=== PATIENT | male | born 1965 | race American Indian/Alaskan Native ===

== ENCOUNTER 2016-12-05 09:58 | Inpatient (IN) | payer OTHER ==
[2016-12-05 10:21] VITALS: BMI 38.6
[2016-12-05] MEDS ORDERED: Sodium Chloride 0.9% 1,000 ML IV STA (10:27)
[2016-12-05] MEDS ORDERED: Iohexol 240 (50 ml) PO ONE (10:27)
--- NOTE | 2016-12-05 10:29 | ED PDOC ---
HPI: Abdomen Time Seen by Provider: 12/05/16 10:15 Chief Complaint (Nursing): Abdominal Pain Chief Complaint (Provider): Abd pain History Per: Patient History/Exam Limitations: no limitations Onset/Duration Of Symptoms: Days (3) Additional History Per: Patient Additional Complaint(s): Abd pain for 3 days. No nausea, vomit, diarrhea, weakness, headaches. No back pain. No dysuria. No testicular pain. No chest pain, dyspnea. No new food or drinks. Past Medical History Reviewed: Nursing Documentation, Vital Signs Vital Signs: Last Vital Signs Temp 98.0 F 12/05/16 10:05 Pulse 79 12/05/16 14:07 Resp 19 12/05/16 14:07 BP 159/94 H 12/05/16 14:07 Pulse Ox 100 12/05/16 14:48 - Medical History PMH: Diabetes, HTN, Hypercholesterolemia Denies: Chronic Kidney Disease - Surgical History Surgical History: No Surg Hx - Family History Family History: States: Unknown Family Hx - Living Arrangements Living Arrangements: With Family - Social History Current smoker - smoking cessation education provided: No Alcohol: None Drugs: Denies - Home Medications Home Medications: Ambulatory Orders Medication Instructions Recorded GlipiZIDE [Glucotrol] 10 mg PO BID 12/12/14 Metformin HCl 1,000 mg PO BID 12/12/14 Ciprofloxacin HCl [Ciprofloxacin] 500 mg PO BID #14 tab 12/14/14 Clindamycin [Cleocin] 300 mg PO TID #21 cap 12/14/14 Cyclobenzaprine [Cyclobenzaprine 10 mg PO BID #14 tab 01/19/15 HCl] Ibuprofen [Motrin] 600 mg PO Q8 #30 tab 01/19/15 Sulfamethoxazole/Trimethoprim 1 tab PO BID #14 tab 09/01/16 [Bactrim DS 800 mg-160 mg] oxyCODONE/Acetaminophen [Percocet 1 ea PO Q6 #6 tab 09/01/16 5/325 mg Tab] Clindamycin [Cleocin] 300 mg PO TID #30 cap 09/26/16 - Allergies Allergies/Adverse Reactions: Allergies Allergy/AdvReac Type Severity Reaction Status Date / Time Penicillins Allergy RASH Verified 12/05/16 10:11 Review of Systems ROS Statement: Except As Marked, All Systems Reviewed And Found Negative Gastrointestinal: Positive for: Abdominal Pain Physical Exam - Reviewed Nursing Documentation Reviewed: Yes Vital Signs Reviewed: Yes - Physical Exam Appears: Positive for: Non-toxic, No Acute Distress Head Exam: Positive for: ATRAUMATIC, NORMAL INSPECTION, NORMOCEPHALIC Skin: Positive for: Normal Color, Warm, DRY Eye Exam: Positive for: EOMI, Normal appearance, PERRL ENT: Positive for: Normal ENT Inspection Neck: Positive for: Normal, Painless ROM Cardiovascular/Chest: Positive for: Regular Rate, Rhythm Respiratory: Positive for: CNT, Normal Breath Sounds Gastrointestinal/Abdominal: Positive for: Bowel Sounds, Soft, Tenderness (mild diffuse) Back: Positive for: Normal Inspection. Negative for: L CVA Tenderness, R CVA Tenderness Extremity: Positive for: Normal ROM. Negative for: Tenderness Neurologic/Psych: Positive for: Alert, Oriented - Laboratory Results Result Diagrams: 12/05/16 10:52 12/05/16 10:52 Interpretation Of Abn Labs: no acute - ECG ECG: Positive for: Interpreted By Me, Viewed By Me ECG Rhythm: Positive for: Sinus Rhythm Interpretation Of Abn EKG: LVH? O2 Sat by Pulse Oximetry: 100 Pulse Ox Interpretation: Normal - CT Scan/US ct Other Rad Studies (CT/US): Read By Radiologist Other Rad Interpretation: pancreatitis - Progress ED Course And Treament: 1510: Stable. AAOx3. Pain free. Will need admit for pancreatitis. LR being given. Dr. Zimmer to take over care. Fu on Dr. Wolff for admit. ED OBSERVATION Date of observation admission: 12/05/16 Time of observation admission: 10:28 - Observation admission statement Patient is being placed in observation because:: abd pain - Goals of Observation Goals of observation are:: pain Disposition - Clinical Impression Clinical Impression: Pancreatitis - Patient ED Disposition Is Patient to be Admitted: Transfer of Care Counseled Patient/Family Regarding: Studies Performed, Diagnosis - Disposition Disposition Time: 15:11 Condition: STABLE - Pt Status Changed To: Hospital Disposition Of: Inpatient - Admit Certification Admit to Inpatient:: After my assessment, the patient will require hospitalization for at least two midnights. This is because of the severity of symptoms shown, intensity of services needed, and/or the medical risk in this patient being treated as an outpatient. - POA Present On Arrival: None
[2016-12-05] MEDS ORDERED: Iohexol 240 (50 ml) ONE (10:44)
[2016-12-05 11:02] LABS: BASO # 0.1 K/uL (0.0-0.2); EOS # 0.2 K/uL (0.0-0.7); EOS % 2.1 % (0.0-4.0); HEMATOCRIT 40.8 % (35.0-51.0); LYMPH # 2.7 K/uL (1.0-4.3); LYMPH % 23.9 % (20.0-40.0); MEAN CELL VOLUME 85.4 fl (80.0-94.0); MEAN CORPUSCULAR HEMOGLOBIN 27.4 pg (27.0-31.0); MEAN PLATELET VOLUME 8.6 fl (7.2-11.7); MONO # 0.7 K/uL (0.0-0.8); MONO % 6.7 % (0.0-10.0); NEUT # 7.4 K/uL (1.8-7.0); NEUT % 66.3 % (50.0-75.0); NRBC % 0.1 % (0.0-0.0); RED CELL DISTRIBUTION WIDTH 14.8 % (11.5-14.5); WHITE BLOOD COUNT 11.1 K/uL (4.8-10.8)
[2016-12-05 11:17] LABS: ALB/GLOB RATIO 1.1 (1.0-2.1); ALKALINE PHOSPHATASE 86 U/L (38-126); ALT/SGPT 34 U/L (21-72); AST/SGOT 27 U/L (17-59); BILIRUBIN,TOTAL 0.3 mg/dl (0.2-1.3); BLOOD UREA NITROGEN 13 mg/dl (9-20); CALCIUM 9.1 mg/dL (8.4-10.2); CARBON DIOXIDE 28 mmol/L (22-30); CHLORIDE 104 mmol/L (98-107); GFR AFRICAN-AMERICAN > 60; GLUCOSE,RANDOM 159 mg/dL (75-110); LIPASE 179 U/L (23-300); POTASSIUM 4.2 MMOL/L (3.6-5.0); SODIUM 139 mmol/l (132-148); TOTAL PROTEIN 7.4 G/DL (6.3-8.2)
[2016-12-05] MEDS ORDERED: Iohexol 300 100 ML IJ ONE (12:55)
[2016-12-05] MEDS ORDERED: Sodium Chloride 0.9% 50 ML IV ONE (12:58)
--- NOTE | 2016-12-05 14:24 | CT ---
PROCEDURE: CT Abdomen and Pelvis with contrast HISTORY: abd pain COMPARISON: 09/26/2016 CT scan TECHNIQUE: Contrast dose: 100 cc Radiation dose: Total exam DLP = mGy-cm. FINDINGS: LOWER THORAX: No focal infiltrate or nodule. No pleural effusion seen. Very small hiatal hernia is unchanged. LIVER: Moderate coarse density of the liver which may suggest an element of fatty infiltration or patter cellular disease. No new focal liver mass or intrahepatic ductal dilatation. GALLBLADDER AND BILE DUCTS: No gallstones or gallbladder wall thickening seen. Common bile duct is normal in size. PANCREAS: Since the prior examination there appears to be some interval increase in size of the body and tail of the pancreas with some mild peripancreatic inflammatory changes suspected. No focal fluid collection to suggest pseudocyst is seen. There is lesser degree heterogeneous density involving the pancreatic head region and mildly decreased from the prior study. No significant pancreatic ductal dilatation is clearly seen. Portions of the adjacent inflammatory change extend into the left anterior para renal space and adjacent to the left adrenal gland. Splenic vein is patent. SPLEEN: Unremarkable. ADRENALS: Unremarkable. No mass. KIDNEYS AND URETERS: No hydronephrosis is seen. No renal masses are noted. Kidneys are unchanged from prior study. VASCULATURE: Patent SMA and celiac artery. Patent inferior vena cava. Grossly patent portal vein and splenic vein. BOWEL: No pericolonic inflammatory process is identified. No bowel obstruction is seen. APPENDIX: Normal appendix. PERITONEUM: No ascites is seen. Previously noted inflammatory changes adjacent to the pancreas. No mesenteric adenopathy. LYMPH NODES: Unremarkable. No enlarged lymph nodes. BLADDER: Unremarkable. REPRODUCTIVE: Unremarkable. BONES: Degenerative changes in the spine without compression fracture. OTHER FINDINGS: No inguinal hernias are seen. There has been resolution of previously identified induration and soft tissue thickening in the anterior left lower fariba thorax from prior study. There is however a mild amount of residual thickening seen in the right anterior pelvis with some mild enhancement seen on axial images 163 through 174. IMPRESSION: Imaging findings consistent with pancreatitis primarily involving the body and tail of the pancreas with mild peripancreatic inflammatory change, however no appreciable pseudocyst. Decreased inflammatory change within the pancreatic head region from the prior CT scan. No evidence of bowel obstruction. No pleural effusion or ascites seen elsewhere. Persistent nonspecific soft tissue thickening and skin thickening in the right anterior lower pelvis.
[2016-12-05] MEDS ORDERED: Lactated Ringer's 1,000 ML IV SCH (15:00)
--- NOTE | 2016-12-05 15:46 | ED PDOC ---
- Laboratory Results Result Diagrams: 12/05/16 10:52 12/05/16 10:52 - ECG O2 Sat by Pulse Oximetry: 100 Disposition - Clinical Impression Clinical Impression: Pancreatitis - POA Present On Arrival: None - Disposition Disposition: Admitted as In-Patient Disposition Time: 15:46 Condition: STABLE
[2016-12-05] MEDS: Lactated Ringer's 1,000 ML IV SCH (18:03)
[2016-12-05] MEDS ORDERED: Pneumococcal 23-Valent Vaccine IM ONE (20:00)
[2016-12-05] MEDS: Insulin Regular 100 units/ml SC SCH (22:32)
[2016-12-06] MEDS: Lactated Ringer's 1,000 ML IV SCH ×4 (05:04→23:15)
[2016-12-06] MEDS: Insulin Regular 100 units/ml SC SCH ×4 (06:59→23:00)
[2016-12-06 07:54] LABS: HEMATOCRIT 39.9 % (35.0-51.0); MEAN CELL VOLUME 85.3 fl (80.0-94.0); MEAN CORPUSCULAR HEMOGLOBIN 27.7 pg (27.0-31.0); MEAN CORPUSCULAR HGB CONC 32.5 g/dL (33.0-37.0); RED CELL DISTRIBUTION WIDTH 14.8 % (11.5-14.5); WHITE BLOOD COUNT 11.5 K/uL (4.8-10.8)
[2016-12-06 08:22] LABS: ALKALINE PHOSPHATASE 81 U/L (38-126); ALT/SGPT 27 U/L (21-72); AST/SGOT 24 U/L (17-59); BILIRUBIN,TOTAL 0.4 mg/dl (0.2-1.3); BLOOD UREA NITROGEN 10 mg/dl (9-20); CALCIUM 8.7 mg/dL (8.4-10.2); CARBON DIOXIDE 29 mmol/L (22-30); CHLORIDE 105 mmol/L (98-107); GFR AFRICAN-AMERICAN > 60; GLUCOSE,RANDOM 97 mg/dL (75-110); POTASSIUM 4.4 MMOL/L (3.6-5.0); SODIUM 138 mmol/l (132-148); TOTAL PROTEIN 6.8 G/DL (6.3-8.2)
[2016-12-06] MEDS: Enoxaparin 40 mg Syringe SC SCH (09:01)
--- NOTE | 2016-12-06 14:05 | CP.PCM.CON ---
<Chelle Roberts - Last Filed: 12/06/16 14:07> History of Present Illness - History of Present Illness History of Present Illness: Gastroenterology Fellow/PGY4 Consult Note 51 year old male with history of Hypertension, Hyperlipidemia, and Diabetes presented with epigastric pain. Patient describes severe epigastric pain for three days without radiation to back. Denies associated nausea, vomiting, diarrhea, hematemesis, constipation, melena, hematochezia, weight loss. At present, abdominal pain has resolved since medications in ER. No prior EGD or colonoscopy. Family-denies colon cancer Social-denies tobacco, alcohol, illicit drug use Surgery-none Review of Systems - Review of Systems Review of Systems: A 12-point review of systems negative except for as above Past Patient History - Past Medical History & Family History Past Medical History?: Yes - Past Social History Smoking Status: Never Smoked - CARDIAC Hx Hypercholesterolemia: Yes Hx Hypertension: Yes - PULMONARY Hx Pneumonia: Yes - NEUROLOGICAL Hx Neurological Disorder: No - HEENT Hx HEENT Problems: No - RENAL Hx Chronic Kidney Disease: No - ENDOCRINE/METABOLIC Hx Endocrine Disorders: Yes Hx Diabetes Mellitus Type 2: Yes - HEMATOLOGICAL/ONCOLOGICAL Hx Blood Disorders: No - INTEGUMENTARY Hx Dermatological Problems: No - MUSCULOSKELETAL/RHEUMATOLOGICAL Hx Musculoskeletal Disorders: No Hx Falls: No - GASTROINTESTINAL Hx Gastrointestinal Disorders: No - GENITOURINARY/GYNECOLOGICAL Hx Genitourinary Disorders: No - PSYCHIATRIC Hx Psychophysiologic Disorder: No Hx Substance Use: No - SURGICAL HISTORY Hx Surgeries: No - ANESTHESIA Hx Anesthesia: No Meds Allergies/Adverse Reactions: Allergies Allergy/AdvReac Type Severity Reaction Status Date / Time Penicillins Allergy RASH Verified 12/05/16 10:11 - Medications Medications: Current Medications Enoxaparin Sodium (Lovenox) 40 mg SC DAILY [facility] PRN Reason: Protocol Last Admin: 12/06/16 09:01 Dose: 40 mg Lactated Ringer's (Lactated Ringer's) 1,000 mls @ 100 mls/hr IV .Q10H [facility] Last Admin: 12/06/16 05:06 Dose: 100 mls/hr Insulin Human Regular (Humulin R) 0 units SC ACCU-CHECK [facility] PRN Reason: Protocol Last Admin: 12/06/16 13:01 Dose: Not Given Physical Exam - Constitutional Appears: Non-toxic, No Acute Distress - Head Exam Head Exam: ATRAUMATIC, NORMOCEPHALIC - Eye Exam Eye Exam: EOMI, PERRL Pupil Exam: PERRL. absent: Miosis, Mydriatic - ENT Exam ENT Exam: Mucous Membranes Moist, Normal Oropharynx - Neck Exam Neck exam: Positive for: Full Rom, Normal Inspection - Respiratory Exam Respiratory Exam: Clear to Auscultation Bilateral. absent: Rales, Rhonchi, Wheezes - Cardiovascular Exam Cardiovascular Exam: RRR, +S1, +S2. absent: Gallop, Rubs - GI/Abdominal Exam GI & Abdominal Exam: Normal Bowel Sounds, Soft. absent: Distended, Firm, Guarding, Organomegaly, Rebound, Rigid, Tenderness - Extremities Exam Extremities exam: Positive for: full ROM. Negative for: pedal edema - Neurological Exam Neurological exam: Alert - Psychiatric Exam Psychiatric exam: Normal Affect, Normal Mood - Skin Skin Exam: Dry, Intact, Normal Color, Warm Results - Vital Signs Recent Vital Signs: Last Vital Signs Temp 98.7 F 12/06/16 08:20 Pulse 66 12/06/16 08:20 Resp 20 12/06/16 08:20 BP 146/72 12/06/16 08:20 Pulse Ox 100 12/06/16 08:20 - Labs Result Diagrams: 12/06/16 05:30 12/06/16 05:30 Labs: Laboratory Results - last 24 hr 12/05/16 12/06/16 12/06/16 22:17 05:30 05:42 WBC 11.5 H RBC 4.68 Hgb 13.0 Hct 39.9 MCV 85.3 MCH 27.7 MCHC 32.5 L RDW 14.8 H Plt Count 285 Sodium 138 Potassium 4.4 Chloride 105 Carbon Dioxide 29 Anion Gap 9 L BUN 10 Creatinine 0.8 Est GFR ( Amer) > 60 Est GFR (Non-Af Amer) > 60 POC Glucose (mg/dL) 106 102 Random Glucose 97 Calcium 8.7 Total Bilirubin 0.4 AST 24 ALT 27 Alkaline Phosphatase 81 Total Protein 6.8 Albumin 3.4 L Globulin 3.4 Albumin/Globulin Ratio 1.0 12/06/16 10:50 WBC RBC Hgb Hct MCV MCH MCHC RDW Plt Count Sodium Potassium Chloride Carbon Dioxide Anion Gap BUN Creatinine Est GFR ( Amer) Est GFR (Non-Af Amer) POC Glucose (mg/dL) 80 Random Glucose Calcium Total Bilirubin AST ALT Alkaline Phosphatase Total Protein Albumin Globulin Albumin/Globulin Ratio Assessment & Plan - Assessment and Plan (Free Text) Assessment: 51 year old male with history of Hypertension, Hyperlipidemia, Diabetes,and Perineal Abscess treatment presented with epigastric pain. PCt A/P showing improving inflammatory changes of pancreatic head to left anterior pararenal region. No prior EGD or colonoscopy. Plan: >pain resolved at present evaluation >advance clear liquid diet >monitor clinical response >if symptoms recur, consider dedicated CT pancreas protocol >continue supportive care: IVFs, pain control PRN >further recommendations based on clinical course <Mary Mcdonald MD - Last Filed: 12/06/16 14:18> Meds - Medications Medications: Current Medications Enoxaparin Sodium (Lovenox) 40 mg SC DAILY [facility] PRN Reason: Protocol Last Admin: 12/06/16 09:01 Dose: 40 mg Lactated Ringer's (Lactated Ringer's) 1,000 mls @ 100 mls/hr IV .Q10H [facility] Last Admin: 12/06/16 05:06 Dose: 100 mls/hr Insulin Human Regular (Humulin R) 0 units SC ACCU-CHECK [facility] PRN Reason: Protocol Last Admin: 12/06/16 13:01 Dose: Not Given Results - Vital Signs Recent Vital Signs: Last Vital Signs Temp 98.7 F 12/06/16 08:20 Pulse 66 12/06/16 08:20 Resp 20 12/06/16 08:20 BP 146/72 12/06/16 08:20 Pulse Ox 100 12/06/16 08:20 - Labs Result Diagrams: 12/06/16 05:30 12/06/16 05:30 Labs: Laboratory Results - last 24 hr 12/05/16 12/06/16 12/06/16 22:17 05:30 05:42 WBC 11.5 H RBC 4.68 Hgb 13.0 Hct 39.9 MCV 85.3 MCH 27.7 MCHC 32.5 L RDW 14.8 H Plt Count 285 Sodium 138 Potassium 4.4 Chloride 105 Carbon Dioxide 29 Anion Gap 9 L BUN 10 Creatinine 0.8 Est GFR ( Amer) > 60 Est GFR (Non-Af Amer) > 60 POC Glucose (mg/dL) 106 102 Random Glucose 97 Calcium 8.7 Total Bilirubin 0.4 AST 24 ALT 27 Alkaline Phosphatase 81 Total Protein 6.8 Albumin 3.4 L Globulin 3.4 Albumin/Globulin Ratio 1.0 12/06/16 10:50 WBC RBC Hgb Hct MCV MCH MCHC RDW Plt Count Sodium Potassium Chloride Carbon Dioxide Anion Gap BUN Creatinine Est GFR ( Amer) Est GFR (Non-Af Amer) POC Glucose (mg/dL) 80 Random Glucose Calcium Total Bilirubin AST ALT Alkaline Phosphatase Total Protein Albumin Globulin Albumin/Globulin Ratio Attending/Attestation - Attestation I have personally seen and examined this patient.: Yes I have fully participated in the care of the patient.: Yes I have reviewed all pertinent clinical information: Yes Notes (Text): 12/06/16 14:16 Patient seen and examined with Gi fellow on rounds this am. This is a 51 year old male with history of Hypertension, Hyperlipidemia, Diabetes,and Perineal Abscess in 2014 admitted with epigastric pain. CT A/P showing improving inflammatory changes of pancreatic head to left anterior pararenal region. Pain has resolved. Lipase is normal. Can start clear liquid diet and advance as tolerated. Continue IVF.
[2016-12-07] MEDS: Lactated Ringer's 1,000 ML IV SCH ×2 (04:02→12:41)
[2016-12-07 07:06] LABS: HEMATOCRIT 40.8 % (35.0-51.0); MEAN CELL VOLUME 84.6 fl (80.0-94.0); MEAN CORPUSCULAR HEMOGLOBIN 27.5 pg (27.0-31.0); MEAN CORPUSCULAR HGB CONC 32.5 g/dL (33.0-37.0); RED CELL DISTRIBUTION WIDTH 14.3 % (11.5-14.5); WHITE BLOOD COUNT 10.2 K/uL (4.8-10.8)
[2016-12-07 07:45] LABS: ALKALINE PHOSPHATASE 87 U/L (38-126); ALT/SGPT 29 U/L (21-72); AMYLASE 57 U/L (30-110); AST/SGOT 21 U/L (17-59); BILIRUBIN,TOTAL 0.5 mg/dl (0.2-1.3); BLOOD UREA NITROGEN 9 mg/dl (9-20); CALCIUM 9.1 mg/dL (8.4-10.2); CARBON DIOXIDE 26 mmol/L (22-30); CHLORIDE 104 mmol/L (98-107); GFR AFRICAN-AMERICAN > 60; GLUCOSE,RANDOM 111 mg/dL (75-110); LIPASE 57 U/L (23-300); POTASSIUM 4.3 MMOL/L (3.6-5.0); SODIUM 142 mmol/l (132-148); TOTAL PROTEIN 7.3 G/DL (6.3-8.2)
[2016-12-07 08:24] VITALS: BP 144/80; PULSE 69; RESP 20; TEMP 98.1; O2SAT 99
[2016-12-07] MEDS: Insulin Regular 100 units/ml SC SCH ×2 (09:46→12:41)
[2016-12-07] MEDS: Enoxaparin 40 mg Syringe SC SCH (09:48)
--- NOTE | 2016-12-07 09:50 | CARD ---
APPROVED REPORT EKG Measurement Heart [id number] <Conclusion> Normal sinus rhythm Nonspecific T wave abnormality Abnormal ECG
--- NOTE | 2016-12-07 10:39 | PN ---
DATE: 12/07/2016 The patient seen and examined. Interim events noted. Consults noted, appreciated. Gastroenterology followup and intervention noted and appreciated. The patient remains on regular medical floor. Sadiq erating liquid diet without any problems. Denies any abdominal pain, nausea, vomiting or diarrhea. PHYSICAL EXAMINATION: GENERAL: The patient is in no acute distress. VITAL SIGNS: Stable. HEART: S1, S2 normal, regular. LUNGS: Good bilateral air exchange. ABDOMEN: Soft, nontender, no organomegaly, no fluid. Bowel sounds are plus. No sign of acute abdom en. No guarding, no rigidity, no rebound. EXTREMITIES: No edema, no calf swelling, no tenderness, no acute ischemia. CENTRAL NERVOUS SYSTEM: Essentially unchanged. DIAGNOSTIC DATA: Available reviewed. Amylase, lipase level is unremarkable. Other blood tests are unremarkable. Overall, patient's general medical condition is improving. PLAN: As ordered. North Gannon MD cc: [id number] TT: 12/07/2016 10:38:51 Confirmation # [id number] Dictation # [id number] en
--- NOTE | 2016-12-10 07:44 | PQF GENQUE ---
Dr. Gannon consult dated 12/06 documents "PCT A/P showing improving inflammatory changes of pancreatic head." Progress note dated 12/07 documents "amylase, lipase level unremarkable. After study what is the principal diagnosis for this case? This form is a permanent part of the medical record Clarification of your documentation is requested to better reflect the severity of illness and intensity of treatment of your patient. Indicators present [] Specify: [] [] Specify: [] [] Specify: [] [] Specify: [] Location in the medical record that reflects the above clinical findings: [x] consult, 12/07 progress note Treatment Provided: [] PHYSICIAN'S RESPONSE Based on your medical judgment of the clinical indicators outlined above please clarify the following: [] Practitioner response [] If unable to determine, please check the box, sign and date. Present On Admission (POA) Indicator: [] Present at the time of admission [] Not present at the time of admission [] Clinically Undetermined In responding to this query, please exercise your independent professional judgment. The fact that a question is asked does not imply that any particular answer is desired or expected. Thank you for your clarification on this documentation. If you have any questions please call:[ ] * Thank you, [ ]Donna Dickerson enamel applier LEO
--- NOTE | 2016-12-16 08:06 | HP ---
CHIEF COMPLAINT: Abdominal pain. HISTORY OF PRESENT ILLNESS: This is a 51-year-old male who was having abdominal pain for a few days, which got much worse yesterday. So the patient was brought to the Emergency Room and was found to h ave acute pancreatitis and was admitted for further management. REVIEW OF SYSTEMS: Positive for abdominal pain. Review of systems otherwise is negative for headach e, dizziness, syncope, loss of consciousness, chest pain, shortness of breath, nausea, vomiting, diar mela, constipation, any new joint or extremity pain. Review of systems of all other organ systems is unremarkable. PAST MEDICAL HISTORY: Significant for diabetes, hypertension, elevated cholesterol, and obesity. PAST SURGICAL HISTORY: Unremarkable. PERSONAL HISTORY: The patient is currently a nonsmoker, nondrinker. No substance abuse. MEDICATIONS: The patient is on glipizide, metformin, ciprofloxacin, clindamycin, Motrin, Bactrim, Pe rcocet, clindamycin, and Flexeril. ALLERGIES: PENICILLIN. FAMILY HISTORY: Noncontributory. PHYSICAL EXAMINATION: GENERAL: Well-built, well-nourished, overweight 51-year-old male in no acute distress. VITAL SIGNS: Temperature 98.7, pulse 66, respirations 20, blood pressure 146/72, saturation 96%. HEENT: Pupils are reacting to light. NECK: No JVD, no thyromegaly, no lymphadenopathy, no nystagmus. Normocephalic, atraumatic skull. HEART: S1, S2 normal, regular. No significant murmur, gallop, or rub is heard. LUNGS: Shows good bilateral air exchange. No rales or rhonchi. ABDOMEN: Soft, nontender. No organomegaly, no fluid. Bowel sounds are plus. EXTREMITIES: No edema, no calf swelling, no tenderness, no acute ischemia. CENTRAL NERVOUS SYSTEM: Essentially unchanged. ABDOMEN: Again, there is no sign of acute abdomen. No guarding, no rigidity, no rebound. Bowel columba nds are plus and normal. DIAGNOSTIC DATA: Available diagnostic data reviewed. WBC 11.1, hemoglobin 13.1, hematocrit 4____.8, platelets 283. Sodium 139, potassium 4.2, chloride 10 4, bicarb 28. BUN 13, creatinine 0.____. Accu-Cheks 159, 106, 102, 97. SMA-12 is unremarkable. EKG does not reveal any acute ST-T changes. CAT scan of abdomen shows acute pancreatitis. ADMITTING IMPRESSION: Acute pancreatitis, type 2 diabetes mellitus, hypertension, elevated cholester ol, morbid obesity. PLAN: As ordered. Case and plan discussed with the patient. North Gannon MD cc: [id number] TT: 12/06/2016 10:45:16 jn
== END 2016-12-07 15:08 | disposition home or self-care (01) | DRG 440 ==
LOC: H.ER 09:58 → H.EROBSV 10:28 → OBSVTOIN 15:45 → H.ERHOLD 15:51 → H.MEDSURG1 16:43
PROVIDERS: ADMIT Internal Medicine; ATTEND Internal Medicine
PROC: 3E0234Z Introduction of Serum, Toxoid and Vaccine into Muscle, Percutaneous Approach (ICD-10-PCS; principal; 2016-12-05)
DX: K85.90 Acute pancreatitis without necrosis or infection, unspecified (principal); E66.01 Morbid (severe) obesity due to excess calories; I10 Essential (primary) hypertension; E11.9 Type 2 diabetes mellitus without complications; E78.00 Pure hypercholesterolemia, unspecified; E78.5 Hyperlipidemia, unspecified; Z88.0 Allergy status to penicillin; Z23 Encounter for immunization; Z68.38 Body mass index [BMI] 38.0-38.9, adult

== ENCOUNTER 2017-01-12 06:22 | Day surgery (SDC) | payer OTHER ==
[2017-01-01 11:21] VITALS: BMI 38.3
[2017-01-12] MEDS ORDERED: methylPREDNISolone Depo 80 mg/ml Inj ONE (07:23)
[2017-01-12] MEDS ORDERED: Iohexol 300 10 ML ONE ×2 (07:24→08:03)
[2017-01-12] MEDS ORDERED: Sodium Chloride 0.9% 20 ML IV ONE (07:24)
[2017-01-12] MEDS ORDERED: Lidocaine 2% Inj (20ml) ONE (07:25)
[2017-01-12] MEDS ORDERED: Bupivacaine 0.5% Inj(30mL) ONE (07:25)
[2017-01-12] MEDS ORDERED: Bacitracin Ointment 30 GM TUBE ONE (07:25)
[2017-01-12] MEDS ORDERED: Midazolam 2 MG/2 ML VIAL ONE (07:33)
[2017-01-12] MEDS ORDERED: Propofol 10 mg/ml Inj (20 ML) ONE (07:33)
[2017-01-12 07:38] VITALS: RESP 18
[2017-01-12] MEDS ORDERED: Succinylcholine 200 mg/10 ml Inj IV ONE (07:39)
[2017-01-12] MEDS ORDERED: Sodium Chloride 0.9% Inj (10mL) IV ONE ×2 (08:14)
[2017-01-12] MEDS ORDERED: Lactated Ringer's 1,000 ML IV ONE (08:20)
--- NOTE | 2017-01-12 08:27 | PCM.SURG1 ---
Surgeon's Initial Post Op Note - Surgeon's Notes Surgeon: Nohemy Short MD Building Estimator: Jony Caldwell PA-C Type of Anesthesia: IV Sedation Pre-Operative Diagnosis: Right Hip Osteoarthritis Operative Findings: See op report Post-Operative Diagnosis: Same as pre-op dx Operation Performed: Right Hip Injection Specimen/Specimens Removed: None Estimated Blood Loss: EBL {In ML}: 0 Date of Surgery/Procedure: 01/12/17 Time of Surgery/Procedure: 08:15
[2017-01-12] MEDS ORDERED: HYDROmorphone 0.5 mg/0.5 ml ISec IVP PRN (08:28)
--- NOTE | 2017-01-12 10:45 | OP ---
PROCEDURE DATE: 01/12/2017 ATTENDING PHYSICIAN: Nohemy Short MD. CLAIMS ACCOUNT MANAGER: JESSE Llanes. PREOPERATIVE DIAGNOSIS: Right hip osteoarthritis. POSTOPERATIVE DIAGNOSIS: Right hip osteoarthritis. PROCEDURE: Right hip fluoroscopic-guided cortisone injection. ANESTHESIA TYPE: Conscious sedation. ESTIMATED BLOOD LOSS: None. COMPLICATIONS: None. HISTORY: The patient is a 52-year-old male who has been suffering from right hip osteoarthritis. [facility] patient was seen in my office. The pain has not been controlled with physical therapy and conserva tive management with antiinflammatory medication. The patient was indicated for right hip cortisone injection. I reviewed the risks and benefits of the procedure with the patient that would include bl eeding, infection, nerve/vessel damage, continued pain and need for further procedures. The patient fully understood the risks and the benefits and opted to proceed with procedure. DESCRIPTION OF PROCEDURE: On the day of the surgery, the patient was admitted to the preop holding a silas. A laterality sheet was completed, confirming the patient's right hip as the correct operative s ite. The patient's right hip was marked. He was brought into the operating room table. He was give n conscious sedation. Right hip was draped and prepped in standard sterile manner. Under fluoroscop ic guided, a 15-gauge spinal needle was placed into the hip capsule anterolaterally. An opaque dye w as injected to confirm the intraarticular position. Once confirmed, 80 mg of Depo-Medrol plus 8 mL o f 0.5% Marcaine was injected into the joint. The patient tolerated the procedure well. There were n o complications of surgery. Afterwards, the patient was transferred to the stretcher and taken to [facility] recovery room. Catalina Clarke was present for the entirety of the procedure as her participating was crucial in danelle ent positioning, providing traction, and successful completion of this procedure. Nohemy Short MD cc: [id number] TT: 01/12/2017 10:45:02 tn
[2017-01-12 12:14] VITALS: BP 143/76; PULSE 62; TEMP 98.3; O2SAT 97
--- NOTE | 2017-01-13 14:42 | RAD ---
PROCEDURE: Fluoroscopy up to 1 hr. HISTORY: RIGHT HIP INJECTION FOR PAIN MANAGEMENT COMPARISON: None TECHNIQUE: Standard protocol for this study/examination. FINDINGS: Total fluoroscopic time (continuous mode) utilized during the procedure: 16.3 seconds IMPRESSION: Less than 1 hr fluoroscopic time utilized during performance of the procedure.
== END 2017-01-12 12:10 | disposition home or self-care (01) ==
LOC: H.OPSURG 06:22
PROVIDERS: ATTEND Orthopaedic Surgery
DX: M16.11 Unilateral primary osteoarthritis, right hip (principal); M62.81 Muscle weakness (generalized); M06.80 Other specified rheumatoid arthritis, unspecified site; J45.909 Unspecified asthma, uncomplicated; E11.9 Type 2 diabetes mellitus without complications; E78.5 Hyperlipidemia, unspecified; I10 Essential (primary) hypertension

== ENCOUNTER 2017-02-04 20:02 | Emergency (ER) | payer OTHER ==
[2017-02-04 20:02] VITALS: BMI 38.3
[2017-02-04 21:41] VITALS: BP 167/77; PULSE 92; RESP 18; O2SAT 95
[2017-02-04] MEDS ORDERED: Sodium Chloride 0.9% 1,000 ML IV STA (23:17)
[2017-02-04 23:50] LABS: BASO # 0.1 K/uL (0.0-0.2); BASO % 0.6 % (0.0-2.0); EOS # 0.1 K/uL (0.0-0.7); HEMATOCRIT 38.8 % (35.0-51.0); LYMPH # 1.8 K/uL (1.0-4.3); LYMPH % 18.8 % (20.0-40.0); MEAN CELL VOLUME 82.9 fl (80.0-94.0); MEAN CORPUSCULAR HEMOGLOBIN 27.7 pg (27.0-31.0); MEAN CORPUSCULAR HGB CONC 33.5 g/dL (33.0-37.0); MEAN PLATELET VOLUME 8.3 fl (7.2-11.7); MONO # 0.8 K/uL (0.0-0.8); MONO % 8.1 % (0.0-10.0); NEUT # 6.7 K/uL (1.8-7.0); NEUT % 71.5 % (50.0-75.0); RED CELL DISTRIBUTION WIDTH 14.6 % (11.5-14.5); WHITE BLOOD COUNT 9.4 K/uL (4.8-10.8)
[2017-02-05] LABS: ALB/GLOB RATIO 1.1 (1.0-2.1); ALKALINE PHOSPHATASE 93 U/L (38-126); ALT/SGPT 25 U/L (21-72); AST/SGOT 28 U/L (17-59); BILIRUBIN,TOTAL 0.6 mg/dl (0.2-1.3); BLOOD UREA NITROGEN 9 mg/dl (9-20); CALCIUM 8.7 mg/dL (8.4-10.2); CARBON DIOXIDE 28 mmol/L (22-30); CHLORIDE 101 mmol/L (98-107); GFR AFRICAN-AMERICAN > 60; GLUCOSE,RANDOM 113 mg/dL (75-110); POTASSIUM 4.2 MMOL/L (3.6-5.0); SODIUM 139 mmol/l (132-148); TOTAL PROTEIN 7.6 G/DL (6.3-8.2)
--- NOTE | 2017-02-05 00:14 | ED PDOC ---
HPI: Headache Chief Complaint (Provider): Headache History Per: Patient History/Exam Limitations: no limitations Onset/Duration Of Symptoms: Days (x2days) Current Symptoms Are (Timing): Still Present Additional Complaint(s): Juan Manuel Dumont is a 52 year old male with a past medical history of HTN, asthma , diabetes, pneumonia, and hypercholesterolemia with no surgical history who presents to the ED with a chief complaint of a headache onset x2days. Patient denies any neck pain, sore throat, vomiting, abdominal or chest pain. Patient states he took an Aleve at home and which gave relief but the headache slowly progressed back. <Corin Nelson - Last Filed: 02/05/17 00:12> <Deangelo Hayward - Last Filed: 02/05/17 02:41> Time Seen by Provider: 02/05/17 00:08 Chief Complaint (Nursing): Headache Past Medical History Vital Signs: Last Vital Signs Temp 102.3 F H 02/04/17 21:38 Pulse 92 H 02/04/17 21:38 Resp 18 02/04/17 21:38 BP 167/77 H 02/04/17 21:38 Pulse Ox 95 02/04/17 21:38 - Medical History PMH: Arthritis, Asthma, Diabetes, HTN, Hypercholesterolemia, Pneumonia Denies: Chronic Kidney Disease - Surgical History Surgical History: No Surg Hx - Family History Family History: States: Unknown Family Hx - Social History Current smoker - smoking cessation education provided: No Ex-Smoker (has not smoked in the last 12 months): Yes (Quit 2 weeks ago) Alcohol: None Drugs: Denies <Corin Nelson - Last Filed: 02/05/17 00:12> Vital Signs: Last Vital Signs Temp 102.3 F H 02/04/17 21:38 Pulse 92 H 02/04/17 21:38 Resp 18 02/04/17 21:38 BP 167/77 H 02/04/17 21:38 Pulse Ox 95 02/05/17 00:46 <Deangelo Hayward - Last Filed: 02/05/17 02:41> - Home Medications Home Medications: Ambulatory Orders Medication Instructions Recorded GlipiZIDE [Glucotrol] 10 mg PO BID 12/12/14 Metformin HCl 1,000 mg PO BID 12/12/14 Enalapril Maleate [Vasotec] 10 mg DAILY 12/07/16 Oseltamivir [Tamiflu] 75 mg PO BID #10 cap 02/05/17 - Allergies Allergies/Adverse Reactions: Allergies Allergy/AdvReac Type Severity Reaction Status Date / Time Penicillins Allergy RASH Verified 12/05/16 10:11 shellfish derived Allergy SWELLING Verified 01/01/17 11:21 Review of Systems ROS Statement: Except As Marked, All Systems Reviewed And Found Negative ENT: Negative for: Other (Sore throat) Cardiovascular: Negative for: Chest Pain Gastrointestinal: Negative for: Vomiting, Abdominal Pain <Corin Nelson Y - Last Filed: 02/05/17 00:12> Physical Exam - Reviewed Nursing Documentation Reviewed: Yes Vital Signs Reviewed: Yes - Physical Exam Appears: Positive for: Well, No Acute Distress Head Exam: Positive for: ATRAUMATIC, NORMAL INSPECTION, NORMOCEPHALIC Skin: Positive for: Normal Color, Warm, Dry Eye Exam: Positive for: Normal appearance, EOMI, PERRL ENT: Positive for: Normal ENT Inspection Neck: Positive for: Normal Cardiovascular/Chest: Positive for: Regular Rate, Rhythm, Chest Non Tender. Negative for: Murmur, Tachycardia Respiratory: Positive for: Normal Breath Sounds. Negative for: Wheezing, Respiratory Distress Gastrointestinal/Abdominal: Positive for: Normal Exam, Soft. Negative for: Tenderness Male Genital Exam: Positive for: normal genitalia Back: Positive for: Normal Inspection Rectal: Positive for: Deferred Extremity: Positive for: Normal ROM Lymphatic: Positive for: Deferred Neurologic/Psych: Positive for: Alert, Oriented <Corin Nelson Y - Last Filed: 02/05/17 00:12> - Laboratory Results Result Diagrams: 02/04/17 23:46 02/04/17 23:46 - ECG O2 Sat by Pulse Oximetry: 95 (RA) Pulse Ox Interpretation: Normal <Corin Nelson Y - Last Filed: 02/05/17 00:12> - Laboratory Results Result Diagrams: 02/04/17 23:46 02/04/17 23:46 <Deangelo Hayward - Last Filed: 02/05/17 02:41> Medical Decision Making Medical Decision Makin: Initial Impression:Headache; non specific non thunder clap Initial Plan: * Head CT * CBC * CMP * Chest wo views * Sodium Chloride 1000ml * Acetaminophen 650mg * Urine C&S * Influenza A B * Rapid strep group * Urinalysis * Re-Eval Scribe~Attestation: Documented by Ritu Chu acting as a~scribe~for Corin Nelson MD. ~ Provider~Scribe~Attestation: All medical record entries made by the~Scribe~were at my direction and personally dictated by me. I have reviewed the chart and agree that the record accurately reflects my personal performance of the history, physical exam, medical decision making, and the department course for this patient. I have also personally directed, reviewed, and agree with the discharge instructions and disposition. <Corin Nelson - Last Filed: 02/05/17 00:12> Disposition <Corin Nelson - Last Filed: 02/05/17 00:12> - Patient ED Disposition Is Patient to be Admitted: Transfer of Care <Deangelo Hayward - Last Filed: 02/05/17 02:41> - Clinical Impression Clinical Impression: Influenza - Disposition Condition: STABLE Prescriptions: Oseltamivir [Tamiflu] 75 mg PO BID #10 cap Instructions: Influenza (ED)
--- NOTE | 2017-02-05 00:46 | ED PDOC ---
- Laboratory Results Result Diagrams: 02/04/17 23:46 02/04/17 23:46 - ECG O2 Sat by Pulse Oximetry: 95 (RA) Medical Decision Making Medical Decision Makin: Patient is being transferred to Dr. Hayward pending CT, CXR,Urine/ Labs ad re- eval. Scribe~Attestation: Documented by Ritu Chu acting as a~scribe~for Corin Nelson MD. ~ Provider~Scribe~Attestation: All medical record entries made by the~Scribe~were at my direction and personally dictated by me. I have reviewed the chart and agree that the record accurately reflects my personal performance of the history, physical exam, medical decision making, and the department course for this patient. I have also personally directed, reviewed, and agree with the discharge instructions and disposition.
[2017-02-05 01:52] VITALS: TEMP 98.9
--- NOTE | 2017-02-05 09:43 | CT ---
PROCEDURE: CT HEAD WITHOUT CONTRAST. HISTORY: headache COMPARISON: None available. TECHNIQUE: Axial computed tomography images were obtained through the head/brain without intravenous contrast. Radiation dose: Total exam DLP = 876.52 mGy-cm. This CT exam was performed using one or more of the following dose reduction techniques: Automated exposure control, adjustment of the mA and/or kV according to patient size, and/or use of iterative reconstruction technique. FINDINGS: HEMORRHAGE: No intracranial hemorrhage. BRAIN: Small chronic appearing area low attenuation left superior frontal subcortical white matter could represent the old infarct or possibly sequela of old trauma. Clinical correlation recommended. No obvious extra-axial mass or collection seen on this noncontrast study. VENTRICLES: Unremarkable. No hydrocephalus. CALVARIUM: Unremarkable. PARANASAL SINUSES: Mild mucoperiosteal inflammatory changes seen within the maxillary,, sphenoid, ethmoid and frontal air complexes. MASTOID AIR CELLS: Unremarkable as visualized. No inflammatory changes. OTHER FINDINGS: None. IMPRESSION: Small chronic appearing area low attenuation left superior frontal subcortical white matter could represent the old infarct or possibly sequela of old trauma Mild mucoperiosteal inflammatory changes within all paranasal sinuses.
--- NOTE | 2017-02-05 11:10 | RAD ---
HISTORY: fever COMPARISON: Comparison chest 01/17/2012 TECHNIQUE: Chest PA and lateral FINDINGS: LUNGS: Slightly increased -coarsened interstitial markings. Rule out developing interstitial infiltrates PLEURA: No significant pleural effusion identified. No pneumothorax apparent. CARDIOVASCULAR: Normal. OSSEOUS STRUCTURES: Small bilateral cervical ribs unchanged VISUALIZED UPPER ABDOMEN: Normal. OTHER FINDINGS: None. IMPRESSION: Slight increased/ coarsened interstitial markings ; rule out developing interstitial infiltrates
== END 2017-02-05 02:19 | disposition home or self-care (01) ==
LOC: H.ER 20:02
DX: J11.1 Influenza due to unidentified influenza virus with other respiratory manifestations (principal); R50.9 Fever, unspecified; I10 Essential (primary) hypertension; E11.9 Type 2 diabetes mellitus without complications; E78.00 Pure hypercholesterolemia, unspecified; R51 Headache

== ENCOUNTER 2017-10-09 20:20 | Inpatient (IN) | payer OTHER ==
[2017-10-09 20:20] VITALS: BMI 38.3
[2017-10-09] MEDS ORDERED: Alum-Mag Hydrox-Simethicone Susp (30 mL) PO ONE (21:18)
[2017-10-09] MEDS ORDERED: Sodium Chloride 0.9% 1,000 ML IV STA ×2 (21:18→22:04)
--- NOTE | 2017-10-09 21:36 | ED PDOC ---
HPI: General Adult Time Seen by Provider: 10/09/17 20:49 Chief Complaint (Nursing): Abdominal Pain History Per: Patient Additional Complaint(s): Pt. states for the past several hours he's had non-radiating epigastric abdominal pain. Reports similar symptoms in the past. States he was dx with pancreatitis last time he had this symptoms but at that time pain was more severe. Denies N/V/D, fever, chest pain, SOB, palpitations, previous abdominal surgeries, back pain. Past Medical History Reviewed: Historical Data, Nursing Documentation, Vital Signs Vital Signs: Last Vital Signs Temp 98.8 F 10/10/17 02:15 Pulse 71 10/10/17 02:15 Resp 18 10/10/17 02:15 BP 134/68 10/10/17 02:15 Pulse Ox 98 10/10/17 02:19 - Medical History PMH: Arthritis, Asthma, Diabetes, HTN, Hypercholesterolemia, Pneumonia Denies: Chronic Kidney Disease - Surgical History Surgical History: No Surg Hx - Family History Family History: States: No Known Family Hx - Home Medications Home Medications: Ambulatory Orders Medication Instructions Recorded GlipiZIDE [Glucotrol] 10 mg PO BID 12/12/14 Metformin HCl 1,000 mg PO BID 12/12/14 Enalapril Maleate [Vasotec] 10 mg DAILY 12/07/16 Cholecalciferol [Vitamin D 1000 IU] 4,000 iu PO QWK 10/10/17 - Allergies Allergies/Adverse Reactions: Allergies Allergy/AdvReac Type Severity Reaction Status Date / Time Penicillins Allergy RASH Verified 10/09/17 20:32 shellfish derived Allergy SWELLING Verified 10/09/17 20:32 Review of Systems ROS Statement: Except As Marked, All Systems Reviewed And Found Negative Gastrointestinal: Positive for: Abdominal Pain Physical Exam - Physical Exam Appears: Positive for: Well, Non-toxic, No Acute Distress Skin: Positive for: Normal Color, Warm. Negative for: Rash Eye Exam: Positive for: Normal appearance Neck: Positive for: Normal, Painless ROM Cardiovascular/Chest: Positive for: Regular Rate, Rhythm, Chest Non Tender Respiratory: Positive for: Normal Breath Sounds. Negative for: Wheezing, Respiratory Distress Gastrointestinal/Abdominal: Positive for: Normal Exam, Bowel Sounds, Soft. Negative for: Tenderness, Mass, Distended, Guarding, Rebound, Asicites Back: Positive for: Normal Inspection. Negative for: L CVA Tenderness, R CVA Tenderness Neurologic/Psych: Positive for: Alert, Oriented. Negative for: Aphasia, Facial Droop - Laboratory Results Result Diagrams: 10/09/17 21:40 10/09/17 21:40 - ECG ECG: Positive for: Interpreted By Me ECG Rhythm: Positive for: Sinus Rhythm. Negative for: ST/T Changes Rate: 73 O2 Sat by Pulse Oximetry: 98 - Radiology X-Ray: Interpreted by Me (CXR) X-Ray Interpretation: No Acute Disease - Progress ED Course And Treament: Labs ordered. CXR, EKG ordered. Pepcid 40mg IV, maalox 30ml PO ordered. IV NS bolus x 2, IV LR bolus x 1 ordered. Case d/w Dr. Wolff and arrangements made for admission. Medical Decision Making Medical Decision Making: CT abd/pelvis: acute pancreatitis. Pt. with elevated WBC and hx of DM. Pt. will be admitted. Disposition - Clinical Impression Clinical Impression: Acute pancreatitis - Patient ED Disposition Is Patient to be Admitted: Yes - Disposition Disposition Time: 01:39 Condition: STABLE
[2017-10-09 21:45] LABS: BASO # 0.2 K/uL (0.0-0.2); BASO % 1.1 % (0.0-2.0); EOS # 0.2 K/uL (0.0-0.7); EOS % 1.5 % (0.0-4.0); HEMOGLOBIN 12.7 g/dL (12.0-18.0); LYMPH # 2.7 K/uL (1.0-4.3); LYMPH % 16.7 % (20.0-40.0); MEAN CELL VOLUME 83.7 fl (80.0-94.0); MEAN CORPUSCULAR HEMOGLOBIN 26.9 pg (27.0-31.0); MEAN CORPUSCULAR HGB CONC 32.1 g/dL (33.0-37.0); MEAN PLATELET VOLUME 8.2 fl (7.2-11.7); MONO # 1.1 K/uL (0.0-0.8); MONO % 6.6 % (0.0-10.0); NEUT % 74.1 % (50.0-75.0); NRBC % 0.2 % (0.0-0.0); RBC 4.72 Mil/uL (4.40-5.90); RED CELL DISTRIBUTION WIDTH 14.7 % (11.5-14.5); WHITE BLOOD COUNT 16.2 K/uL (4.8-10.8)
[2017-10-09] MEDS ORDERED: Alum-Mag Hydrox-Simethicone Susp (30 mL) ONE (21:48)
[2017-10-09 21:57] LABS: ALB/GLOB RATIO 1.1 (1.0-2.1); ALBUMIN 4.1 g/dL (3.5-5.0); ALT/SGPT 42 U/L (21-72); AST/SGOT 25 U/L (17-59); BLOOD UREA NITROGEN 8 mg/dl (9-20); CALCIUM 9.2 mg/dL (8.4-10.2); GFR AFRICAN-AMERICAN > 60; GFR NON-AFRICAN AMERICAN > 60; LIPASE 358 U/L (23-300)
[2017-10-09 23:04] LABS: VENOUS BLOOD GAS BASE EXCESS 1.3 mmol/L (0.0-2.0); VENOUS BLOOD GAS PCO2 47 mmHg (40-60); VENOUS BLOOD GAS PO2 34 mm/Hg (30-55); VENOUS BLOOD PH 7.37 (7.32-7.43)
[2017-10-10] MEDS ORDERED: Sodium Chloride 0.9% 50 ML IV ONE (00:09)
[2017-10-10] MEDS ORDERED: Iodixanol 320 MG/ML 100 ML BOTTLE IV ONE (00:09)
[2017-10-10] MEDS: Lactated Ringer's 1,000 ML IV SCH ×3 (02:19→11:22)
[2017-10-10] MEDS ORDERED: HYDROmorphone 0.5 mg/0.5 ml ISec IVP PRN (07:03)
[2017-10-10] MEDS: Insulin Lispro (humaLOG) 100 Units/ml Inj SC SCH ×4 (08:45→22:27)
--- NOTE | 2017-10-10 08:49 | RAD ---
HISTORY: abdominal pain COMPARISON: Chest radiographs 02/05/2017. FINDINGS: LUNGS: No active pulmonary disease. PLEURA: No significant pleural effusion identified, no pneumothorax apparent. CARDIOVASCULAR: Normal. OSSEOUS STRUCTURES: No significant abnormalities. VISUALIZED UPPER ABDOMEN: Normal. OTHER FINDINGS: None. IMPRESSION: No interval acute cardiopulmonary disease appreciated.
[2017-10-10 10:00] LABS: HEMOGLOBIN 11.6 g/dL (12.0-18.0); MEAN CELL VOLUME 83.5 fl (80.0-94.0); MEAN CORPUSCULAR HEMOGLOBIN 26.5 pg (27.0-31.0); MEAN CORPUSCULAR HGB CONC 31.8 g/dL (33.0-37.0); RBC 4.37 Mil/uL (4.40-5.90); RED CELL DISTRIBUTION WIDTH 15.1 % (11.5-14.5); WHITE BLOOD COUNT 12.3 K/uL (4.8-10.8)
--- NOTE | 2017-10-10 10:47 | CT ---
PROCEDURE: CT Abdomen and Pelvis with contrast HISTORY: epigastric pain; hx of pancreatitis; lipase 358 COMPARISON: Abdomen pelvis CT with contrast 12/05/2016. TECHNIQUE: Contrast dose: Visipaque 320, 95 cc. Radiation dose: Total exam DLP = 1134.10 mGy-cm. This CT exam was performed using one or more of the following dose reduction techniques: Automated exposure control, adjustment of the mA and/or kV according to patient size, and/or use of iterative reconstruction technique. FINDINGS: LOWER THORAX: Unremarkable. LIVER: Hepatic steatosis is suggested with the liver otherwise unremarkable appearing. GALLBLADDER AND BILE DUCTS: No radiodense cholelithiasis is seen associated with a mildly distended gallbladder. PANCREAS: Pancreas is mildly enlarged with peripancreatic reaction appear relatively prominent the head through midbody level. No pancreatic duct dilatation is demonstrated there is no pseudocyst or local fluid collection appreciated. Edema has not yet entered into the para renal spaces at this time. The pattern is compatible with recurrent pancreatitis. Further clinical correlation recommended. SPLEEN: Unremarkable. ADRENALS: Unremarkable. No mass. KIDNEYS AND URETERS: Unremarkable. No hydronephrosis. No solid mass. VASCULATURE: Unremarkable. No aortic aneurysm. BOWEL: No bowel obstruction measure edema or free intrarenal gas identified. There is sigmoid diverticular change without acute disease related apparently. APPENDIX: Normal appendix. PERITONEUM: Unremarkable. No free fluid. No free air. LYMPH NODES: Unremarkable. No enlarged lymph nodes. BLADDER: Unremarkable. REPRODUCTIVE: Unremarkable. BONES: No acute fracture. OTHER FINDINGS: There is a soft tissue lesion involving the dermis and subcutaneous soft tissue of the skin of the inferior pelvis essentially at and slightly above the level of the urinary bladder but superficial in location, measuring 4.3 x 2.6 cm. IMPRESSION: 1. Findings most compatible with recurrent pancreatitis. No definitive mass is appreciated however follow-up CT is advised following therapy to better evaluate the proximal 2/3 of the pancreas which appear enlarged and reactive. No peripancreatic fluid collection or obvious pattern fingertip necrosis. Peripancreatic reaction is appreciated. Follow-up clinical and CT evaluation is advised. No radiodense cholelithiasis within a mildly distended gallbladder. 2. Hepatic steatosis. 3. 4.3 cm right-sided pelvic skin/subcutaneous fat lesion likely reflective of an inflammatory infectious process though neoplasm is not excluded and further clinical correlation is advised. Concordant preliminary report from [facility], 10/10/2017.
[2017-10-10 10:50] LABS: ALBUMIN 3.4 g/dL (3.5-5.0); ALT/SGPT 30 U/L (21-72); AST/SGOT 19 U/L (17-59); BLOOD UREA NITROGEN 7 mg/dl (9-20); CALCIUM 8.5 mg/dL (8.4-10.2); GFR AFRICAN-AMERICAN > 60; GFR NON-AFRICAN AMERICAN > 60; LIPASE 50 U/L (23-300)
--- NOTE | 2017-10-10 17:18 | CARD ---
APPROVED REPORT EKG Measurement Heart [id number] <Conclusion> Normal sinus rhythm T wave abnormality, consider inferolateral ischemia Abnormal ECG
--- NOTE | 2017-10-11 04:53 | HP ---
HISTORY OF PRESENT ILLNESS: This is a 52-year-old male with history of multiple medical problems including type 2 diabetes mellitus, hypertension, presented to emergency room with symptoms of upper abdominal pain that he has gained after eating a turkey sandwich about an hour prior to this admission. Patient started to have aching pain on the stomach associated with nausea, but denied vomiting or diarrhea. Patient denied to have any similar pain before. Patient was evaluated in the emergency room and found to have leukocytosis and admitted for further management. OTHER REVIEW OF SYSTEMS: Negative. ALLERGIES: POSITIVE FOR PENICILLIN AND SHELLFISH. SOCIAL HISTORY: Positive for smoking. No EtOH or substance abuse. FAMILY HISTORY: Noncontributory. MEDICATIONS: As per MAR. PAST MEDICAL HISTORY: Hypertension, type 2 diabetes mellitus, aortic stenosis. PHYSICAL EXAMINATION: GENERAL: Patient is in bed, comfortable at the time of this examination, not in any cardiopulmonary distress. VITAL SIGNS: With blood pressure 137/89, temperature 99, respiratory rate 20, and pulse 67. HEENT: Pupils equal, reactive to light. Normal-appearing mucosa of the conjunctivae, oropharynx, and nasal membrane mucosa. NECK: Supple. No JVD. No carotid bruit. No lymph node. No thyromegaly. CHEST AND LUNGS: Bilateral symmetrical expansion. Good air exchange. No rales, no rhonchi. CARDIOVASCULAR SYSTEM: PMI not localized. S1, S2. No additional sounds. ABDOMEN: Normoactive bowel sounds. No tenderness. No organomegaly. No masses. EXTREMITIES: No cyanosis, no clubbing, no edema. CENTRAL NERVOUS SYSTEM: Alert, awake, oriented x3. No neurological deficit could be appreciated. ASSESSMENT: 1. Possible food poisoning with severe gastritis that is resolving. 2. Type 2 diabetes mellitus. 3. Hypertension. 4. CAT scan finding of possible recurrent pancreatitis, but no definitive mass is appreciated; however, the proximal two-thirds of the pancreas appeared enlarged and reactive. No peripancreatic fluid collection or obvious peripancreatic action is appreciated. PLAN: We will advance the diet and discontinue IV fluid and we will continue Accu-Cheks with insulin coverage and we will repeat lipase as that was elevated on admission. Paris Wolff MD [facility] # [id number]
[2017-10-11] MEDS: Insulin Lispro (humaLOG) 100 Units/ml Inj SC SCH ×4 (06:31→22:00)
[2017-10-11] MEDS: Lactated Ringer's 1,000 ML IV SCH (12:17)
[2017-10-11 12:34] LABS: HEMOGLOBIN 12.3 g/dL (12.0-18.0); MEAN CELL VOLUME 83.6 fl (80.0-94.0); MEAN CORPUSCULAR HEMOGLOBIN 26.7 pg (27.0-31.0); MEAN CORPUSCULAR HGB CONC 31.9 g/dL (33.0-37.0); RBC 4.61 Mil/uL (4.40-5.90); RED CELL DISTRIBUTION WIDTH 14.6 % (11.5-14.5); WHITE BLOOD COUNT 12.5 K/uL (4.8-10.8)
[2017-10-11 12:58] LABS: AMYLASE 52 U/L (30-110); BLOOD UREA NITROGEN 9 mg/dl (9-20); CALCIUM 9.2 mg/dL (8.4-10.2); GFR AFRICAN-AMERICAN > 60; GFR NON-AFRICAN AMERICAN > 60; LIPASE 38 U/L (23-300)
--- NOTE | 2017-10-11 16:08 | CP.PCM.CON ---
<Maribell Tejeda - Last Filed: 10/12/17 11:49> History of Present Illness - History of Present Illness History of Present Illness: PGY4 Initial GI Consult Note Reason for consult: pancreatitis Juan Manuel Dumont is a 52M w/ hx of Arthritis, Asthma, Diabetes, HTN, Hypercholesterolemia, and pancreatitis who presented to the ER with complaints of abdominal pain. Pt states that the pain was located in the epigastric area. He states that the onset was yesterday and it was sudden. He notes that the pain peaked around a 6 out of 10 and slowly subsided after being admitted. He denies any radiation of his pain. He denies any aggravating or alleviating factors. He denies any recent alcohol consumption. He notes that he last drink has been > 6months. He notes intermittent Etoh use in the past. He states that he would consume two large 24oz cans 1-2x a month. He had previous admission at [facility] for pancreatitis in November 2016. CT of the abd revealed acute pancreatitis without complication. Upon my evaluation, he states that he was able to tolerate his regular diet. Currently denies any abd pain, nausea or vomting. Denies any BRBPR, hematemesis, or coffee-ground emesis. PMHx: Arthritis, Asthma, Diabetes, HTN, Hypercholesterolemia PSHx: Social Hx: smokes 1-2 cig daily but smoked 1/2 pack a day for 6 years, seldom alcohol use, denies any illicit drug use Family hx: Nephew with "pancreas issues", father at the age of 70 2/ 2 colon cancer Endo hx: had a colonoscopy 2-3 years ago and revealed some polyps, repeated a colonoscopy last year but was poor prep ROS: 10 poin ROS conducted, neg other than above Past Patient History - Past Medical History & Family History Past Medical History?: Yes - Past Social History Smoking Status: Current Some Days Smoker - CARDIAC Hx Cardiac Disorders: Yes Hx Hypercholesterolemia: Yes Hx Hypertension: Yes - PULMONARY Hx Respiratory Disorders: Yes Hx Asthma: Yes Hx Pneumonia: Yes - NEUROLOGICAL Hx Neurological Disorder: No - HEENT Hx HEENT Problems: No - RENAL Hx Chronic Kidney Disease: No - ENDOCRINE/METABOLIC Hx Endocrine Disorders: Yes - HEMATOLOGICAL/ONCOLOGICAL Hx Blood Disorders: No - INTEGUMENTARY Hx Dermatological Problems: No - MUSCULOSKELETAL/RHEUMATOLOGICAL Hx Musculoskeletal Disorders: No Hx Falls: No - GASTROINTESTINAL Hx Gastrointestinal Disorders: No - GENITOURINARY/GYNECOLOGICAL Hx Genitourinary Disorders: No - PSYCHIATRIC Hx Psychophysiologic Disorder: No Hx Substance Use: No - SURGICAL HISTORY Hx Surgeries: Yes Other/Comment: cyst removed left underarm - ANESTHESIA Hx Anesthesia: Yes Hx Anesthesia Reactions: No Hx Malignant Hyperthermia: No Meds Allergies/Adverse Reactions: Allergies Allergy/AdvReac Type Severity Reaction Status Date / Time Penicillins Allergy RASH Verified 10/09/17 20:32 shellfish derived Allergy SWELLING Verified 10/09/17 20:32 - Medications Medications: Current Medications Bisoprolol Fumarate (Zebeta) 5 mg PO [facility] Last Admin: 10/10/17 21:33 Dose: 5 mg Enalapril Maleate (Vasotec) 10 mg PO DAILY [facility] Last Admin: 10/11/17 08:16 Dose: 10 mg Famotidine (Pepcid) 20 mg PO DAILY [facility] Last Admin: 10/11/17 08:16 Dose: 20 mg Hydromorphone HCl (Dilaudid) 0.5 mg IVP Q4 PRN PRN Reason: Pain, Mild (1-3) Lactated Ringer's (Lactated Ringer's) 1,000 mls @ 150 mls/hr IV .Q6H40M [facility] Last Admin: 10/11/17 12:17 Dose: 150 mls/hr Insulin Human Lispro (Humalog) 0 units SC ACCU-CHECK [facility] PRN Reason: Protocol Last Admin: 10/11/17 12:18 Dose: 2 units Physical Exam - Head Exam Head Exam: ATRAUMATIC, NORMOCEPHALIC - Eye Exam Eye Exam: Normal appearance - ENT Exam ENT Exam: Mucous Membranes Moist - Respiratory Exam Respiratory Exam: NORMAL BREATHING PATTERN. absent: Rales, Wheezes, Respiratory Distress - Cardiovascular Exam Cardiovascular Exam: REGULAR RHYTHM, +S1, +S2 - GI/Abdominal Exam GI & Abdominal Exam: Normal Bowel Sounds, Soft. absent: Firm, Guarding, Rebound , Rigid - Extremities Exam Extremities exam: Negative for: joint swelling, pedal edema - Neurological Exam Neurological exam: Alert, Oriented x3 - Psychiatric Exam Psychiatric exam: Normal Affect, Normal Mood - Skin Skin Exam: Dry, Intact, Normal Color, Warm Results - Vital Signs Recent Vital Signs: Last Vital Signs Temp 99.1 F 10/11/17 08:55 Pulse 69 10/11/17 08:55 Resp 20 10/11/17 08:55 BP 140/72 10/11/17 08:55 Pulse Ox 99 10/11/17 08:55 - Labs Result Diagrams: 10/12/17 05:15 10/12/17 05:15 Labs: Laboratory Results - last 24 hr 10/10/17 10/10/17 10/11/17 15:54 21:21 05:25 WBC RBC Hgb Hct MCV MCH MCHC RDW Plt Count Sodium Potassium Chloride Carbon Dioxide Anion Gap BUN Creatinine Est GFR ( Amer) Est GFR (Non-Af Amer) POC Glucose (mg/dL) 106 95 124 H Random Glucose Calcium Amylase Lipase 10/11/17 10/11/17 10/11/17 11:03 12:20 12:20 WBC 12.5 H RBC 4.61 Hgb 12.3 Hct 38.5 MCV 83.6 MCH 26.7 L MCHC 31.9 L RDW 14.6 H Plt Count 300 Sodium 141 Potassium 4.3 Chloride 103 Carbon Dioxide 30 Anion Gap 12 BUN 9 Creatinine 0.8 Est GFR ( Amer) > 60 Est GFR (Non-Af Amer) > 60 POC Glucose (mg/dL) 154 H Random Glucose 110 Calcium 9.2 Amylase 52 Lipase 38 Assessment & Plan - Assessment and Plan (Free Text) Assessment: Juan Manuel Dumont is a 52M w/ a hx of Arthritis, Asthma, Diabetes, HTN, Hypercholesterolemia who presents with abd pain. Etiology is likely 2/2 pancreatitis. U/S GB revealed multiple polyps <5mm. Acute Pancreatitis GB polyposis hx of colon polyp hx of pancreatitis Family hx of colon cancer Plan: -advance diet as tolerated -in the setting of gallbladder polyposis, advise surgical consult for lap natasha -recommend MRCP -start pancreatic enzymes 60390 units before meals -will send for TG, igg4 levels -will get Abd U/s -can d/c fluids if tolerating fluids -no indication for abx -no need to trend lipase -advised to f/u with his GI for f/u colonoscopy -pain management as per primary care. D/W Dr. Mcdonald <Tamara COBB,Mary - Last Filed: 10/12/17 13:07> Meds - Medications Medications: Current Medications Amylase (Pancrease 38920 U-5000 U-73602 U) 20,000 unit PO AC [facility] Bisoprolol Fumarate (Zebeta) 5 mg PO HS [facility] Last Admin: 10/11/17 21:16 Dose: 5 mg Enalapril Maleate (Vasotec) 10 mg PO DAILY [facility] Last Admin: 10/12/17 08:17 Dose: 10 mg Famotidine (Pepcid) 20 mg PO DAILY [facility] Last Admin: 10/12/17 08:17 Dose: 20 mg Hydromorphone HCl (Dilaudid) 0.5 mg IVP Q4 PRN PRN Reason: Pain, Mild (1-3) Insulin Human Lispro (Humalog) 0 units SC ACCU-CHECK [facility] PRN Reason: Protocol Last Admin: 10/12/17 12:04 Dose: 6 units Results - Vital Signs Recent Vital Signs: Last Vital Signs Temp 98.2 F 10/12/17 08:08 Pulse 59 L 10/12/17 12:14 Resp 20 10/12/17 08:08 BP 130/63 10/12/17 12:14 Pulse Ox 99 10/12/17 12:14 - Labs Result Diagrams: 10/12/17 05:15 10/12/17 05:15 Labs: Laboratory Results - last 24 hr 10/11/17 10/11/17 10/12/17 16:32 21:18 05:15 WBC RBC Hgb Hct MCV MCH MCHC RDW Plt Count MPV Neut % (Auto) Lymph % (Auto) Addison % (Auto) Eos % (Auto) Baso % (Auto) Neut # Lymph # Addison # Eos # Baso # Sodium Potassium Chloride Carbon Dioxide Anion Gap BUN Creatinine Est GFR ( Amer) Est GFR (Non-Af Amer) POC Glucose (mg/dL) 118 H 103 Random Glucose Calcium Total Bilirubin AST ALT Alkaline Phosphatase Total Protein Albumin Globulin Albumin/Globulin Ratio Triglycerides 100 Cholesterol 110 LDL Cholesterol Direct 55 HDL Cholesterol 26 L 10/12/17 10/12/17 10/12/17 05:15 05:15 05:36 WBC 11.9 H RBC 4.42 Hgb 12.0 Hct 36.6 MCV 82.8 MCH 27.1 MCHC 32.8 L RDW 14.9 H Plt Count 265 MPV 8.6 Neut % (Auto) 66.7 Lymph % (Auto) 22.4 Addison % (Auto) 8.5 Eos % (Auto) 1.6 Baso % (Auto) 0.8 Neut # 7.9 H Lymph # 2.7 Addison # 1.0 H Eos # 0.2 Baso # 0.1 Sodium 143 Potassium 4.5 Chloride 105 Carbon Dioxide 26 Anion Gap 17 BUN 11 Creatinine 0.7 L Est GFR ( Amer) > 60 Est GFR (Non-Af Amer) > 60 POC Glucose (mg/dL) 127 H Random Glucose 128 H Calcium 9.0 Total Bilirubin 0.5 AST 22 ALT 23 Alkaline Phosphatase 67 Total Protein 7.2 Albumin 3.6 Globulin 3.6 Albumin/Globulin Ratio 1.0 Triglycerides Cholesterol LDL Cholesterol Direct HDL Cholesterol 10/12/17 10:54 WBC RBC Hgb Hct MCV MCH MCHC RDW Plt Count MPV Neut % (Auto) Lymph % (Auto) Addison % (Auto) Eos % (Auto) Baso % (Auto) Neut # Lymph # Addison # Eos # Baso # Sodium Potassium Chloride Carbon Dioxide Anion Gap BUN Creatinine Est GFR ( Amer) Est GFR (Non-Af Amer) POC Glucose (mg/dL) 269 H Random Glucose Calcium Total Bilirubin AST ALT Alkaline Phosphatase Total Protein Albumin Globulin Albumin/Globulin Ratio Triglycerides Cholesterol LDL Cholesterol Direct HDL Cholesterol Attending/Attestation - Attestation I have personally seen and examined this patient.: Yes I have fully participated in the care of the patient.: Yes I have reviewed all pertinent clinical information: Yes Notes (Text): 10/12/17 13:01 Patient seen this morning. This is a 52 year old M with history of Arthritis, Asthma, Diabetes, HTN, Hypercholesterolemia who presents with abdominal pain. As per imaging he has chronic pancreatitis. He has remote history of alcohol binging. He denies diarrhea but admits to having LUQ pain. On imaging PD is not dilated or strictured. U/S GB revealed multiple polyps <5mm. Last colonoscopy last year with suboptimal prep. Normal LFT -Advance diet as tolerated -in the setting of gallbladder polyposis, advise surgical consult for lap natasha -recommend MRCP -start pancreatic enzymes 72905 units before meals -will send for TG, Igg4 levels -advised to f/u with his GI for f/u colonoscopy -pain management as per primary care.
[2017-10-11 16:11] VITALS: RESP 20
--- NOTE | 2017-10-12 01:01 | PN ---
DATE: 10/11/2017 SUBJECTIVE: Patient was admitted for epigastric pain with possible pancreatitis. PHYSICAL EXAMINATION: VITAL SIGNS: Blood pressure is 137/70, temperature 99.2, respiratory rate 20, and pulse 63. HEENT: Pupils equal, reactive to light. Normal-appearing mucosa of the conjunctivae, oropharyngeal, and nasal membrane mucosa. NECK: Supple. No JVD. No carotid bruit. No lymph node. No thyromegaly. CHEST AND LUNGS: Bilateral symmetrical expansion. Good air exchange. No rales, no rhonchi. CARDIOVASCULAR SYSTEM: PMI not localized. S1, S2. No additional sounds. ABDOMEN: Normoactive bowel sounds. No tenderness. No organomegaly. No masses. EXTREMITIES: No cyanosis, no clubbing, no edema. CENTRAL NERVOUS SYSTEM: Alert, awake, oriented x3. No neurological deficit could be appreciated. ASSESSMENT: 1. Epigastric pain that followed about one hour after eating turkey sandwich with possible food poisoning and gastritis. 2. CAT scan finding of recurrent pancreatitis with mildly elevated lipase that resolved. 3. Type 2 diabetes mellitus. 4. Hypertension. PLAN: GI consult regarding the picture of pancreatitis. We will do abdominal ultrasound. Advance diet as tolerated. Paris Wolff MD
[2017-10-12] MEDS: Lactated Ringer's 1,000 ML IV SCH (02:26)
[2017-10-12] MEDS: Insulin Lispro (humaLOG) 100 Units/ml Inj SC SCH ×4 (06:06→22:13)
[2017-10-12 06:20] LABS: HDL CHOLESTEROL 26 MG/DL (30-70)
[2017-10-12 06:27] LABS: BASO # 0.1 K/uL (0.0-0.2); BASO % 0.8 % (0.0-2.0); EOS # 0.2 K/uL (0.0-0.7); EOS % 1.6 % (0.0-4.0); LYMPH # 2.7 K/uL (1.0-4.3); LYMPH % 22.4 % (20.0-40.0); MEAN CELL VOLUME 82.8 fl (80.0-94.0); MEAN CORPUSCULAR HEMOGLOBIN 27.1 pg (27.0-31.0); MEAN CORPUSCULAR HGB CONC 32.8 g/dL (33.0-37.0); MEAN PLATELET VOLUME 8.6 fl (7.2-11.7); MONO % 8.5 % (0.0-10.0); NEUT # 7.9 K/uL (1.8-7.0); NEUT % 66.7 % (50.0-75.0); NRBC % 0.2 % (0.0-0.0); RBC 4.42 Mil/uL (4.40-5.90); RED CELL DISTRIBUTION WIDTH 14.9 % (11.5-14.5); WHITE BLOOD COUNT 11.9 K/uL (4.8-10.8)
[2017-10-12 06:30] LABS: LDL CHOLESTEROL 55 mg/dL (0-129)
[2017-10-12 07:09] LABS: ALBUMIN 3.6 g/dL (3.5-5.0); ALT/SGPT 23 U/L (21-72); AST/SGOT 22 U/L (17-59); BLOOD UREA NITROGEN 11 mg/dl (9-20); GFR AFRICAN-AMERICAN > 60; GFR NON-AFRICAN AMERICAN > 60
--- NOTE | 2017-10-12 10:56 | US ---
HISTORY: pancreatitis COMPARISON: None. TECHNIQUE: Sonographic evaluation of the abdomen. FINDINGS: Body habitus limits examination. LIVER: Measures 17.8 cm. Normal echogenicity of the liver parenchyma. No mass. No intrahepatic bile duct dilatation. GALLBLADDER: No definite cholelithiasis seen within the gallbladder which is mildly distended. However, there are small echogenic non shadowing foci at the dependent gallbladder wall within the lumen varying in size from 2-5 mm number at total of 3, suggestive of adenosis or polyp formation. COMMON BILE DUCT: Measures 4.7 mm. No stones. No dilatation. PANCREAS: Pancreas is obscured by overlying stomach or bowel gas nearly completely. RIGHT KIDNEY: Measures 11.9cm. Normal echogenicity. No calculus, mass, or hydronephrosis. LEFT KIDNEY: Measures 13.4cm. Normal echogenicity. No calculus, mass, or hydronephrosis. SPLEEN: Spleen measures 8.9 cm. AORTA: No aneurysmal dilatation. IVC: Unremarkable. OTHER FINDINGS: None. IMPRESSION: Possible gallbladder polyps or adenomyosis at the posterior wall. No biliary tree dilatation identified throughout as discussed above. Pancreas completely obscured by overlying stomach or bowel gas. Remainder the examination appears unremarkable though somewhat limited by body habitus
[2017-10-12] MEDS ORDERED: Amylase/Lipase/Protease 5,000 Units ECC PO SCH ×2 (11:30)
--- NOTE | 2017-10-12 13:02 | CP.PCM.PN ---
Subjective - Date & Time of Evaluation Date of Evaluation: 10/12/17 Time of Evaluation: 12:49 - Subjective Subjective: General Surgery Consult Note for Dr. Sampson This is a 52M with a PMH of DM, HTN, a "Leaking Valve" and recurrent pancreatitis. He reports that this is his second episode however he is currently asymptomatic. He denies any chronic diarrhea, or post prandial abdominal pain however has has had multiple admissions for chronic pancreatitis. This admission during GB US he was found to have multiple GB polyps. PMH: See above PSH: No abdominal surgeries All: PCN, Shellfish Objective - Vital Signs/Intake and Output Vital Signs (last 24 hours): Temp Pulse Resp BP Pulse Ox 98.2 F 59 L 20 130/63 99 10/12/17 08:08 10/12/17 12:14 10/12/17 08:08 10/12/17 12:14 10/12/17 12:14 - Medications Medications: Current Medications Amylase (Pancrease 24264 U-5000 U-21584 U) 20,000 unit PO [facility] Bisoprolol Fumarate (Zebeta) 5 mg PO [facility] Last Admin: 10/11/17 21:16 Dose: 5 mg Enalapril Maleate (Vasotec) 10 mg PO DAILY [facility] Last Admin: 10/12/17 08:17 Dose: 10 mg Famotidine (Pepcid) 20 mg PO DAILY [facility] Last Admin: 10/12/17 08:17 Dose: 20 mg Hydromorphone HCl (Dilaudid) 0.5 mg IVP Q4 PRN PRN Reason: Pain, Mild (1-3) Insulin Human Lispro (Humalog) 0 units SC ACCU-CHECK [facility] PRN Reason: Protocol Last Admin: 10/12/17 12:04 Dose: 6 units - Labs Labs: 10/12/17 05:15 10/12/17 05:15 - Constitutional Appears: Toxic, No Acute Distress - Head Exam Head Exam: ATRAUMATIC, NORMOCEPHALIC - Eye Exam Eye Exam: EOMI, Normal appearance - ENT Exam ENT Exam: Mucous Membranes Moist - Respiratory Exam Respiratory Exam: NORMAL BREATHING PATTERN - Cardiovascular Exam Cardiovascular Exam: +S1, +S2 - GI/Abdominal Exam GI & Abdominal Exam: Soft. absent: Firm, Guarding, Rigid, Tenderness - Neurological Exam Neurological Exam: Alert, Awake - Psychiatric Exam Psychiatric exam: Normal Mood - Skin Skin Exam: Dry, Intact Assessment and Plan - Assessment and Plan (Free Text) Assessment: 52M PMH Diabetes, HTN, Hypercholesterolemia who presents with chronic pancreatitis U/S GB multiple polyps. LFTS and Pancreatic enzymes WNL GB polyposis F/U MRCP Continue management per primary and GI Will discuss Surgical Planning with Dr. Camilla Gan PGY2
[2017-10-12] MEDS: Amylase/Lipase/Protease 5,000 Units ECC PO SCH (16:28)
--- NOTE | 2017-10-13 01:57 | PN ---
DATE: 10/12/2017 SUBJECTIVE: The patient was seen today 10/12/2017. He is not in any cardiopulmonary distress. PHYSICAL EXAMINATION: VITAL SIGNS: Blood pressure is 136/72, temperature 99.5, respiratory rate 20, and pulse 16. HEENT: Pupils equal, reactive to light. Normal-appearing mucosa of the conjunctivae, oropharyngeal and nasal membrane mucosa. NECK: Supple. No JVD. No carotid bruit. No lymph node. No thyromegaly. CHEST AND LUNGS: Bilateral symmetrical expansion. Good air exchange. No rales. No rhonchi. CARDIOVASCULAR SYSTEM: PMI not localized. S1, S2. No additional sounds. ABDOMEN: Normoactive bowel sounds. No tenderness. No organomegaly. No masses. EXTREMITIES: No cyanosis, no clubbing, no edema. CENTRAL NERVOUS SYSTEM: Alert, awake, oriented x2. No neurological difficulty appreciated. ASSESSMENT: 1. Status post epigastric pain with most likely food poisoning with gastritis. 2. Radiographic evidence of recurrent pancreatitis. 3. Gallbladder polyp versus adenomyoma. PLAN: Follow up GI and surgical consult recommendations. Advanced diet as tolerated. Pamela MD New
[2017-10-13] MEDS: Insulin Lispro (humaLOG) 100 Units/ml Inj SC SCH ×2 (06:34→11:17)
--- NOTE | 2017-10-13 06:40 | CP.PCM.PN ---
<Maribell Tejeda - Last Filed: 10/13/17 06:41> Subjective - Date & Time of Evaluation Date of Evaluation: 10/13/17 Time of Evaluation: 06:15 - Subjective Subjective: PGY4 GI Follow-up Pt seen and examined bedside No abd pain tolerated diet reg BM without blood or melena Denies any nausea, vomiting or diarrhea ROS: 10 point ROS conducted, neg other than above Objective - Vital Signs/Intake and Output Vital Signs (last 24 hours): Temp Pulse Resp BP Pulse Ox 98.4 F 57 L 20 129/60 97 10/12/17 23:40 10/12/17 23:40 10/12/17 23:40 10/12/17 23:40 10/12/17 23:40 - Medications Medications: Current Medications Amylase (Pancrease 81828 U-5000 U-17347 U) 20,000 unit PO AC [facility] Last Admin: 10/12/17 16:28 Dose: 20,000 unit Bisoprolol Fumarate (Zebeta) 5 mg PO HS [facility] Last Admin: 10/12/17 22:12 Dose: 5 mg Enalapril Maleate (Vasotec) 10 mg PO DAILY [facility] Last Admin: 10/12/17 08:17 Dose: 10 mg Famotidine (Pepcid) 20 mg PO DAILY [facility] Last Admin: 10/12/17 08:17 Dose: 20 mg Hydromorphone HCl (Dilaudid) 0.5 mg IVP Q4 PRN PRN Reason: Pain, Mild (1-3) Insulin Human Lispro (Humalog) 0 units SC ACCU-CHECK [facility] PRN Reason: Protocol Last Admin: 10/13/17 06:34 Dose: Not Given - Labs Labs: 10/12/17 05:15 10/12/17 05:15 - Constitutional Appears: Well, No Acute Distress - Head Exam Head Exam: ATRAUMATIC, NORMOCEPHALIC - Eye Exam Eye Exam: Normal appearance - ENT Exam ENT Exam: Mucous Membranes Moist - Respiratory Exam Respiratory Exam: Clear to Ausculation Bilateral, NORMAL BREATHING PATTERN. absent: Rales, Rhonchi, Wheezes, Respiratory Distress - Cardiovascular Exam Cardiovascular Exam: REGULAR RHYTHM, +S1 - GI/Abdominal Exam GI & Abdominal Exam: Soft, Normal Bowel Sounds - Extremities Exam Extremities Exam: absent: Joint Swelling, Pedal Edema - Neurological Exam Neurological Exam: Alert, Awake, Oriented x3 - Psychiatric Exam Psychiatric exam: Normal Affect, Normal Mood - Skin Skin Exam: Dry, Intact, Normal Color, Warm Assessment and Plan - Assessment and Plan (Free Text) Assessment: Juan Manuel Dumont is a 52M w/ a hx of Arthritis, Asthma, Diabetes, HTN, Hypercholesterolemia who presents with abd pain. Etiology is likely 2/2 pancreatitis. U/S GB revealed multiple polyps <5mm. Acute Pancreatitis GB polyposis hx of colon polyp hx of pancreatitis Family hx of colon cancer Plan: -advance diet as tolerated -Lap natasha on as per pt and RN -recommend MRCP -start pancreatic enzymes 53077 units before meals -igg4 levels, TG WNL -no indication for abx -Colonoscopy as oupt for colon surveillance -pain management as per primary care. Will D/W Dr. Stephenson <Jose Angel Stephenson - Last Filed: 10/13/17 07:37> Objective - Vital Signs/Intake and Output Vital Signs (last 24 hours): Temp Pulse Resp BP Pulse Ox 98.4 F 57 L 20 129/60 97 10/12/17 23:40 10/12/17 23:40 10/12/17 23:40 10/12/17 23:40 10/12/17 23:40 - Medications Medications: Current Medications Amylase (Pancrease 05871 U-5000 U-21367 U) 20,000 unit PO AC [facility] Last Admin: 10/12/17 16:28 Dose: 20,000 unit Bisoprolol Fumarate (Zebeta) 5 mg PO HS [facility] Last Admin: 10/12/17 22:12 Dose: 5 mg Enalapril Maleate (Vasotec) 10 mg PO DAILY [facility] Last Admin: 10/12/17 08:17 Dose: 10 mg Famotidine (Pepcid) 20 mg PO DAILY [facility] Last Admin: 10/12/17 08:17 Dose: 20 mg Hydromorphone HCl (Dilaudid) 0.5 mg IVP Q4 PRN PRN Reason: Pain, Mild (1-3) Insulin Human Lispro (Humalog) 0 units SC ACCU-CHECK [facility] PRN Reason: Protocol Last Admin: 10/13/17 06:34 Dose: Not Given - Labs Labs: 10/12/17 05:15 10/12/17 05:15 Attending/Attestation - Attestation I have personally seen and examined this patient.: Yes I have fully participated in the care of the patient.: Yes I have reviewed all pertinent clinical information, including history, physical exam and plan: Yes Notes (Text): 10/13/17 07:33 52 year old male with h/o OA, DM, Asthma, HTN, HLD admitted with abdominal pain and CT evidence of acute pancreatitis. 1. Acute pancreatitis 2. Gallbladder polyp Plan: -symptomatically improved, ok to advance to low fat diet -await IGG4 -uncertain etiology for recurrent pancreatitis, lipase was never significantly elevated, but on both occasions his CT showed evidence of pancreatitis -no etoh abuse, gallstones, or high trig -recommend MRCP to evaluate further -would also recommend EUS as outpatient in 4-6 weeks after acute inflammation resolves -surgery consulted for evaluation of gallbladder, reasonable to consider cholecystectomy in idiopathic recurrent acute pancreatitis, especially in the setting of GB polyp, defer to decision to surgery
[2017-10-13] MEDS: Amylase/Lipase/Protease 5,000 Units ECC PO SCH ×2 (08:22→11:18)
[2017-10-13 08:28] VITALS: BP 114/70; PULSE 54; TEMP 98.6; O2SAT 100
[2017-10-13] MEDS ORDERED: Gadodiamide 287 MG/ML VIAL (15ML) IV ONE (09:15)
--- NOTE | 2017-10-13 10:50 | CARD ---
APPROVED REPORT EXAM: Two-dimensional and M-mode echocardiogram with Doppler and color Doppler. Other Information Quality : GoodRhythm : NSR INDICATION Aortic Valve Disease 2D DIMENSIONS IVSd1.45 (0.7-1.1cm)LVDd6.03 (3.9-5.9cm) LVOT Diameter2.33 (1.8-2.4cm)PWd1.42 (0.7-1.1cm) IVSs2.52 (0.8-1.2cm)LVDs3.42 (2.5-4.0cm) FS (%) 43.3 %PWs1.95 (0.8-1.2cm) M-Mode DIMENSIONS Left Atrium (MM)3.53 (2.5-4.0cm)IVSd1.91 (0.7-1.1cm) Aortic Root2.94 (2.2-3.7cm)LVDd6.12 (4.0-5.6cm) Aortic Cusp Exc.1.35 (1.5-2.0cm)PWd1.35 (0.7-1.1cm) IVSs2.35 cmFS (%) 43 % LVDs3.50 (2.0-3.8cm)PWs1.91 cm Aortic Valve AoV Peak Hrinpltv637.2cm/Garrett Peak GR.99mmHgLVOT Peak Hpgaljqe35.1cm/s LVOT VTI26.04cmAVA (VMAX)0.98kg6OT P 1/2 [id number] Mitral Valve E/A ratio0.0 TDI E/Lateral E'0.0E/Medial E'0.0 Pulmonary Valve PV Peak Bryyxvml27.3cm/s LEFT VENTRICLE The left ventricle is normal size. There is moderate concentric left ventricular hypertrophy. The left ventricular function is normal. The left ventricular ejection fraction is 55% There is normal LV segmental wall motion. Transmitral Doppler flow pattern is Grade I-abnormal relaxation pattern. No left ventricle thrombus noted on this study. There is no ventricular septal defect visualized. There is no left ventricular aneurysm. There is no mass noted in the left ventricle. RIGHT VENTRICLE The right ventricle is normal size. There is normal right ventricular wall thickness. The right ventricular systolic function is normal. ATRIA The left atrium size is normal. The right atrium size is normal. The interatrial septum is intact with no evidence for an atrial septal defect. AORTIC VALVE The aortic valve is severely calcified. There is moderate aortic regurgitation. There is severe valvular aortic stenosis. Calculated aortic valve area is .8 cm2 with maximum pressure gradient of 100 mmHg and mean pressure gradient of 40 mmHg. There is no aortic valvular vegetation. MITRAL VALVE The mitral valve is normal in structure. There is no evidence of mitral valve prolapse. There is no mitral valve stenosis. There is no mitral valve regurgitation noted. TRICUSPID VALVE The tricuspid valve is normal in structure. There is no tricuspid valve regurgitation noted. There is no tricuspid valve prolapse or vegetation. There is no tricuspid valve stenosis. PULMONIC VALVE The pulmonary valve is normal in structure. There is no pulmonic valvular regurgitation. There is no pulmonic valvular stenosis. GREAT VESSELS The aortic root is normal in size. The ascending aorta is normal in size. The IVC is normal in size and collapses >50% with inspiration. PERICARDIAL EFFUSION The pericardium appears normal. There is no pleural effusion. <Conclusion> Normal LV systolic function Severe Aortic Stenosis TRISTON .8cm2 Moderate Aortic Insufficiency
--- NOTE | 2017-10-13 11:01 | CP.PCM.CON ---
History of Present Illness - History of Present Illness History of Present Illness: THE PATIENT IS A 52 YEAR OLD MALE WITH A HISTORY OF HYPERTENSION, TYPE 2 DM AND AORTIC STENOSIS/REGURGITATION. HE STATES THAT 4 DAYS AGO AFTER EATING A CHICKEN SANDWICH AND WENT TO THE ER AT [facility] AND WAS ADMITTED. HE HAD AN ABDOMINAL US THAT SHOWED THAT THE GALLBLADDER HAD A POSSIBLE POLYP OR AN ADENOMA. HE WILL HAVE AN MRCP AND MAY NEED SURGERY. CARDIOLOGY WAS ASKED TO SEE HIM FOR CLEARANCE PRIOR TO SURGERY. HE DENIES ANY CHEST PAIN OR SOB. HE ALSO HAS HIP PROBLEMS. Past Patient History - Past Medical History & Family History Past Medical History?: Yes - Past Social History Smoking Status: Current Some Days Smoker - CARDIAC Hx Cardiac Disorders: Yes Hx Hypercholesterolemia: Yes Hx Hypertension: Yes - PULMONARY Hx Respiratory Disorders: Yes Hx Asthma: Yes Hx Pneumonia: Yes - NEUROLOGICAL Hx Neurological Disorder: No - HEENT Hx HEENT Problems: No - RENAL Hx Chronic Kidney Disease: No - ENDOCRINE/METABOLIC Hx Endocrine Disorders: Yes - HEMATOLOGICAL/ONCOLOGICAL Hx Blood Disorders: No - INTEGUMENTARY Hx Dermatological Problems: No - MUSCULOSKELETAL/RHEUMATOLOGICAL Hx Musculoskeletal Disorders: No Hx Falls: No - GASTROINTESTINAL Hx Gastrointestinal Disorders: No - GENITOURINARY/GYNECOLOGICAL Hx Genitourinary Disorders: No - PSYCHIATRIC Hx Psychophysiologic Disorder: No Hx Substance Use: No - SURGICAL HISTORY Hx Surgeries: Yes Other/Comment: cyst removed left underarm - ANESTHESIA Hx Anesthesia: Yes Hx Anesthesia Reactions: No Hx Malignant Hyperthermia: No Meds Allergies/Adverse Reactions: Allergies Allergy/AdvReac Type Severity Reaction Status Date / Time Penicillins Allergy RASH Verified 10/09/17 20:32 shellfish derived Allergy SWELLING Verified 10/09/17 20:32 - Medications Medications: Current Medications Amylase (Pancrease 21313 [id number] U) 20,000 unit PO AC [facility] Last Admin: 10/13/17 08:22 Dose: Not Given Bisoprolol Fumarate (Zebeta) 5 mg PO HS [facility] Last Admin: 10/12/17 22:12 Dose: 5 mg Enalapril Maleate (Vasotec) 10 mg PO DAILY [facility] Last Admin: 10/13/17 08:22 Dose: Not Given Famotidine (Pepcid) 20 mg PO DAILY [facility] Last Admin: 10/13/17 08:22 Dose: Not Given Hydromorphone HCl (Dilaudid) 0.5 mg IVP Q4 PRN PRN Reason: Pain, Mild (1-3) Insulin Human Lispro (Humalog) 0 units SC ACCU-CHECK SANTI PRN Reason: Protocol Last Admin: 10/13/17 06:34 Dose: Not Given Physical Exam - Respiratory Exam Respiratory Exam: Clear to Auscultation Bilateral - Cardiovascular Exam Cardiovascular Exam: REGULAR RHYTHM, +S1, +S2 - Extremities Exam Additional comments: NO LOWER EXTREMITY EDEMA - Additional Findings Additional findings: EKG NSR, NSSTT CHANGES ECHO GOOD LV FUNCTION, SEVERE AORTIC STENOSIS, MODERATE AORTIC REGURGITATION I SPOKE TO HIS PIG FARMER, DR SMITH, WHO CONFIRMED THE AORTIC VALVE PROBLEM AND ALSO STATED THAT HE HAD A STRESS TEST IN THE PAST US WITH POSSIBLE GB POLYP OR ADENOMA Results - Vital Signs Recent Vital Signs: Last Vital Signs Temp 98.6 F 10/13/17 08:28 Pulse 54 L 10/13/17 08:28 Resp 20 10/13/17 08:28 BP 114/70 10/13/17 08:28 Pulse Ox 100 10/13/17 08:28 - Labs Result Diagrams: 10/12/17 05:15 10/12/17 05:15 Labs: Laboratory Results - last 24 hr 10/12/17 10/12/17 10/12/17 10:54 16:16 21:57 POC Glucose (mg/dL) 269 H 150 H 124 H 10/13/17 05:50 POC Glucose (mg/dL) 136 H Assessment & Plan - Assessment and Plan (Free Text) Assessment: SEVERE AORTIC STENOSIS WITH MODERATE AORTIC REGURGITATION HYPERTENSION TYPE 2 DM ABNORMAL GB US Plan: I DO NOT RECOMMEND ELECTIVE GALLBLADDER SURGERY AT THIS TIME-I RECOMMEND DISCHARGE WHEN MEDICALLY STABLE AND THE PATIENT SHOULD HAVE A CARDIAC CATH WITH AORTIC VALVE REPLACEMENT PRIOR TO HIS GALLBLADDER SURGERY I SPOKE TO DR SMITH AND HE AGREES AND WILL SEE HIM NEXT WEEK IN THE OFFICE AND DISCUSS ALL THIS WITH THE PATIENT DR STRANGE WAS SPOKEN TO AND HE AGREES WITH THIS PLAN
--- NOTE | 2017-10-13 14:07 | CP.PCM.PCO ---
Assessment/Plan - Assessment/Plan Assessment (Free Text): Pt stable, had MRCP done. Seen by Dr. Garcia and cleared for d/c home with outpatient f/u with his packager machine, Dr. Trevizo. Pt will need AV replacement prior to elective GB sx. Dr. Wolff has cleared pt to be d/c'd home, he will f/u MRCP result. Pt will f/u with Dr. Isabel as outpt. Pt and RN aware of plan.
--- NOTE | 2017-10-13 14:07 | CP.PCM.PCO ---
Physician Communication Note - Physician Communication Note Physician Communication Note: Cardiology input noted. Please have f/u as outpatient for elective natasha
--- NOTE | 2017-10-13 15:33 | MRI ---
PROCEDURE: MRI Abdomen with and without contrast HISTORY: COMPARISON: None available. TECHNIQUE: Multisequence, multiplanar MR images of the abdomen with and without gadolinium contrast enhancement. Additional imaging includes heavily T2 weighted MRCP images of the biliary system. Rotating maximum intensity projection images of the biliary system were generated. FINDINGS: LIVER: Normal size, contour and signal intensity. No mass. No biliary dilatation. GALLBLADDER: Unremarkable. SPLEEN: Unremarkable. PANCREAS: Mild prominence of the pancreatic head. No peripancreatic fluid. No pancreatic ductal dilatation. 7 mm cyst or cystic mass along the inferior aspect of the uncinate process of the pancreas. Possible IPMN. No communication with the pancreatic duct is demonstrated. No other pancreatic mass is identified. ADRENALS: Unremarkable. KIDNEYS: Unremarkable. AORTA: No aneurysm. ASCITES: None. PERITONEUM: Unremarkable. LYMPH NODES: Unremarkable. OTHER FINDINGS: None. IMPRESSION: 7 mm cyst or cystic mass along the inferior aspect of the uncinate process. Possible IPMN. No communication with the pancreatic duct demonstrated. Followup with MRI is advised in 1 year. No evidence of biliary ductal dilatation or obstruction. No peripancreatic fluid collection identified. No additional abnormality.
--- NOTE | 2017-10-14 20:09 | DS ---
REASON FOR ADMISSION: This is a 52-year-old male with history of multiple medical problems, was admitted for acute abdominal pain thought to be secondary to pancreatitis versus severe food poison related gastritis. COURSE OF HOSPITALIZATION: The patient was admitted to medical floor and he was started on IV fluids. CAT scan on admission showed picture of the current pancreatitis. The patient had a GI consult done by Dr. Terrence rhodes and also surgical consult done by Dr. Sampson due to gallbladder adenomyosis versus polyps. MRCP also was done that showed 7 mm cyst or cystic mass along the inferior aspect of the uncinate process. No communication with the pancreatic duct demonstrated. No evidence of biliary ductal dilatation or obstruction. No peripancreatic fluid collection identified. No additional abnormality identified. The patient was discharged, tolerating diet well and pain free. ASSESSMENT: 1. Possible severe gastritis, food related. 2. CAT scan finding of recurrent pancreatitis with MRI showed pancreatic cyst versus cystic mass. 3. Gallbladder polyps. 4. Severe aortic stenosis. PLAN: The patient will follow with Cardiology to clear the patient for surgery and he will follow with surgery as per cardiac clearance for cholecystectomy and the patient also will follow with GI regarding the abnormal findings in the MRCP. Paris Wolff MD
== END 2017-10-13 15:02 | disposition home or self-care (01) | DRG 440 ==
LOC: H.ER 20:20 → H.ERHOLD 10-10 02:11 → H.MEDSURG1 10-10 03:16
PROVIDERS: ADMIT Internal Medicine; ATTEND Internal Medicine
DX: K85.90 Acute pancreatitis without necrosis or infection, unspecified (principal); E11.9 Type 2 diabetes mellitus without complications; K86.1 Other chronic pancreatitis; I35.2 Nonrheumatic aortic (valve) stenosis with insufficiency; T62.8X1A Toxic effect of other specified noxious substances eaten as food, accidental (unintentional), initial encounter; K29.70 Gastritis, unspecified, without bleeding; I10 Essential (primary) hypertension; K82.4 Cholesterolosis of gallbladder; Y92.9 Unspecified place or not applicable; E78.5 Hyperlipidemia, unspecified; J45.909 Unspecified asthma, uncomplicated; F17.210 Nicotine dependence, cigarettes, uncomplicated; Z86.010 Personal history of colon polyps; Z87.01 Personal history of pneumonia (recurrent); Z88.0 Allergy status to penicillin; Z91.013 Allergy to seafood

== ENCOUNTER 2018-07-23 10:26 | Inpatient (IN) | payer BC ==
[2018-07-23 10:27] VITALS: BMI 38.1
[2018-07-23] MEDS ORDERED: Sodium Chloride 0.9% 1,000 ML IV STA ×2 (10:59→11:36)
[2018-07-23] MEDS ORDERED: Glucagon Recombinant 1 mg Inj IM PRN (11:00)
[2018-07-23] MEDS ORDERED: Insulin Regular 100 units/ml SC STA ×2 (11:00→16:58)
[2018-07-23] MEDS ORDERED: Dextrose 50% SYRINGE Inj (50 ml) IV PRN (11:00)
--- NOTE | 2018-07-23 11:07 | ED PDOC ---
HPI: General Adult Time Seen by Provider: 07/23/18 10:37 Chief Complaint (Nursing): Upper Extremity Problem/Injury Chief Complaint (Provider): Upper and Lower Extremity Problem History Per: Patient History/Exam Limitations: no limitations Onset/Duration Of Symptoms: Days Current Symptoms Are (Timing): Still Present Additional Complaint(s): 53 y/o male with a PMHx of DM and HTN presents to the ED for evaluation of right upper extremity and left lower extremity pain. Patient reports of left thigh swelling and pain for the past two days. Patient noticed yellow drainage on underwear. Denies fever and injury. Patient additionally complaining of right shoulder pain. Denies injury to that shoulder. PMD: Paris Wolff Past Medical History Reviewed: Historical Data, Nursing Documentation, Vital Signs Vital Signs: Last Vital Signs Temp 99.0 F 07/23/18 10:31 Pulse 101 H 07/23/18 10:31 Resp 20 07/23/18 10:31 BP 155/85 H 07/23/18 10:31 Pulse Ox 100 07/23/18 10:31 - Medical History PMH: Arthritis, Asthma, Colonic Polyps, Diabetes, Gall Bladder Disease (STONES), HTN, Hypercholesterolemia, Pneumonia Denies: Chronic Kidney Disease - Surgical History Surgical History: No Surg Hx - Family History Family History: States: Unknown Family Hx - Home Medications Home Medications: Ambulatory Orders Medication Instructions Recorded GlipiZIDE [Glucotrol] 10 mg PO BID 12/12/14 Metformin HCl 1,000 mg PO BID 12/12/14 Enalapril Maleate [Vasotec] 10 mg PO DAILY 12/07/16 Cholecalciferol [Vitamin D 1000 IU] 4,000 iu PO QWK 10/10/17 Albuterol Sulfate [Proair Hfa] 8.5 gm IH Q4 PRN 02/18/18 Amlodipine Besylate/Benazepril 1 cap PO DAILY 02/18/18 [Amlodipine-Benazepril 10-20 mg] Aspirin [Ecotrin] 81 mg PO DAILY 02/18/18 Atorvastatin [Lipitor] 10 mg PO DAILY 02/18/18 Metoprolol Succinate XL [Toprol XL] 25 mg PO DAILY 02/18/18 - Allergies Allergies/Adverse Reactions: Allergies Allergy/AdvReac Type Severity Reaction Status Date / Time Penicillins Allergy Intermediate RASH Verified 02/18/18 07:56 shellfish derived Allergy Intermediate SWELLING Verified 02/18/18 07:56 Review of Systems ROS Statement: Except As Marked, All Systems Reviewed And Found Negative Constitutional: Negative for: Fever Musculoskeletal: Positive for: Shoulder Pain (right shoulder pain), Leg Pain (Left thigh swelling and pain) Physical Exam - Reviewed Nursing Documentation Reviewed: Yes Vital Signs Reviewed: Yes - Physical Exam Appears: Positive for: No Acute Distress Head Exam: Positive for: ATRAUMATIC, NORMOCEPHALIC Skin: Positive for: Normal Color, Warm, Dry Eye Exam: Positive for: Normal appearance, EOMI, PERRL Neck: Positive for: Normal Cardiovascular/Chest: Positive for: Regular Rate, Rhythm. Negative for: Murmur Respiratory: Positive for: Normal Breath Sounds. Negative for: Respiratory Distress Gastrointestinal/Abdominal: Positive for: Normal Exam, Soft. Negative for: Tenderness Extremity: Positive for: Normal ROM (Right shoulder Full ROM), Tenderness (and warmth to the left thigh), Other (5 cm by 5 cm area of induration noted to the left thigh with central area of purulent drainage. ). Negative for: Deformity (of the right shoulder) Neurologic/Psych: Positive for: Alert, Oriented (x3). Negative for: Motor/Sensory Deficits - Laboratory Results Result Diagrams: 07/23/18 11:20 07/23/18 11:20 - ECG O2 Sat by Pulse Oximetry: 100 (RA) Pulse Ox Interpretation: Normal Medical Decision Making Medical Decision Making: Time: 1104 Plan: -- VBG -- CT Extremity Lower w/o contrast left -- EKG -- CMP -- ED Urine Dipstick -- CBC with Differentials -- CXR Two Views -- Glucose, POC -- Dextrose 50% Inj -- Glucagen Diagnostic Kit IM -- Glutose 15 po -- HumuLIN R 8 units SC -- Sodium Chloride 0.9% IV 150 mls/hr -- Vancomycin Inj 1 gm Sodium Chloride 0.9% 250 ml IVPB -- Blood Culture -- Glucose, Blood, POC -- Hypoglycemia Oral Treatment -- Sophie Daugherty Protocol -- Hypoglycemia Treatment Protocol As Ordered -- Shoulder Right XR Scribe Attestation: Documented by Carina Giordano, acting as a scribe Gladys Zimmer MD. Provider Scribe Attestation: All medical record entries made by the Scribe were at my direction and personally dictated by me. I have reviewed the chart and agree that the record accurately reflects my personal performance of the history, physical exam, medical decision making, and the department course for this patient. I have also personally directed, reviewed, and agree with the discharge instructions and disposition. Disposition - Clinical Impression Clinical Impression: Cellulitis, Sepsis, Diabetes mellitus - Patient ED Disposition Is Patient to be Admitted: Yes - Disposition Disposition Time: 13:04 Condition: FAIR Forms: [facility] (Albanian) - Pt Status Changed To: Hospital Disposition Of: Inpatient - Admit Certification Admit to Inpatient:: After my assessment, the patient will require hospitalization for at least two midnights. This is because of the severity of symptoms shown, intensity of services needed, and/or the medical risk in this patient being treated as an outpatient. - POA Present On Arrival: None
[2018-07-23 11:36] LABS: VENOUS BLOOD GAS PCO2 48 mmHg (40-60); VENOUS BLOOD GAS PO2 28 mm/Hg (30-55); VENOUS BLOOD PH 7.36 (7.32-7.43)
[2018-07-23] MEDS ORDERED: Ciprofloxacin 400mg/200ml D5W 400 MG/200 ML BAG IVPB STA (11:39)
[2018-07-23 11:40] LABS: BASO % 0.2 % (0.0-2.0); EOS # 0.1 K/uL (0.0-0.7); EOS % 0.8 % (0.0-4.0); HEMOGLOBIN 11.7 g/dL (12.0-18.0); LYMPH # 2.4 K/uL (1.0-4.3); LYMPH % 17.6 % (20.0-40.0); MEAN CELL VOLUME 81.1 fl (80.0-94.0); MEAN CORPUSCULAR HEMOGLOBIN 26.3 pg (27.0-31.0); MEAN CORPUSCULAR HGB CONC 32.5 g/dL (33.0-37.0); MEAN PLATELET VOLUME 8.6 fl (7.2-11.7); MONO # 0.9 K/uL (0.0-0.8); MONO % 6.3 % (0.0-10.0); NEUT # 10.3 K/uL (1.8-7.0); NEUT % 75.1 % (50.0-75.0); RBC 4.42 Mil/uL (4.40-5.90); RED CELL DISTRIBUTION WIDTH 14.4 % (11.5-14.5); WHITE BLOOD COUNT 13.7 K/uL (4.8-10.8)
[2018-07-23] MEDS ORDERED: Vancomycin 1 g Inj ONE (11:44)
[2018-07-23 12:08] LABS: ALB/GLOB RATIO 0.9 (1.0-2.1); ALBUMIN 3.7 g/dL (3.5-5.0); ALT/SGPT 16 U/L (21-72); AST/SGOT 26 U/L (17-59); BLOOD UREA NITROGEN 13 mg/dl (9-20); CALCIUM 8.9 mg/dL (8.4-10.2); GFR NON-AFRICAN AMERICAN > 60
--- NOTE | 2018-07-23 13:20 | CT ---
Date of service: 07/23/2018 PROCEDURE: HISTORY: Cellulitis left thigh, r/o abscess COMPARISON: TECHNIQUE: FINDINGS: No fracture dislocation is observed. The deep thigh and left pelvic musculature is intact. There is extensive infiltration in the left lateral proximal thigh musculature without evidence of fluid collection compatible with cellulitis. IMPRESSION: Left lateral proximal thigh subcutaneous fat infiltration and skin thickening suggestive of cellulitis. No evidence of abscess.
[2018-07-23] MEDS ORDERED: Ciprofloxacin 400mg/200ml D5W 400 MG/200 ML BAG IVPB ONE (14:10)
--- NOTE | 2018-07-23 14:36 | RAD ---
Date of service: 07/23/2018 HISTORY: Cellulitis COMPARISON: No prior. TECHNIQUE: Chest PA and lateral FINDINGS: LUNGS: No active pulmonary disease. PLEURA: No significant pleural effusion identified. No pneumothorax apparent. CARDIOVASCULAR: No aortic atherosclerotic calcification present. Normal cardiac size. Status post valve replacement. OSSEOUS STRUCTURES: No significant abnormalities. VISUALIZED UPPER ABDOMEN: Normal. OTHER FINDINGS: None. IMPRESSION: No active disease.
--- NOTE | 2018-07-23 14:39 | RAD ---
Date of service: 07/23/2018 PROCEDURE: Radiographs of the Right Shoulder HISTORY: pain COMPARISON: No prior. FINDINGS: BONES: Normal. No fracture. JOINTS: Normal. Glenohumeral and acromioclavicular joints preserved. No osteoarthritis. SOFT TISSUES: Rotator cuff calcific tendinitis. OTHER FINDINGS: None. IMPRESSION: Rotator cuff calcific tendinitis.
--- NOTE | 2018-07-23 18:11 | CARD ---
APPROVED REPORT Date of service: 07/23/2018 EKG Measurement Heart [id number] <Conclusion> Normal sinus rhythm Nonspecific T wave abnormality Abnormal ECG
[2018-07-23] MEDS ORDERED: Cholecalciferol 1,000 INTLU TAB PO SCH (18:45)
[2018-07-23] MEDS: Ciprofloxacin 400mg/200ml D5W 400 MG/200 ML BAG IVPB SCH (21:15)
[2018-07-23] MEDS: Insulin Lispro (humaLOG) 100 Units/ml Inj SC SCH (22:23)
[2018-07-24] MEDS: Ciprofloxacin 400mg/200ml D5W 400 MG/200 ML BAG IVPB SCH ×2 (09:07→20:42)
[2018-07-24] MEDS: Insulin Lispro (humaLOG) 100 Units/ml Inj SC SCH ×4 (09:10→21:31)
[2018-07-24] MEDS: Metoprolol Succinate 25 mg XL Tab PO SCH (09:11)
[2018-07-24] MEDS: Enoxaparin 40 mg Syringe SC SCH (09:11)
[2018-07-24] MEDS ORDERED: Influenza Vaccine 60 MCG/0.5 ML SYR (3 yr & up) IM ONE (16:58)
--- NOTE | 2018-07-24 19:00 | HP ---
HISTORY OF PRESENT ILLNESS: This is a 53-year-old male with history of multiple medical problems who presented to emergency room with pain and swelling and redness of the left upper thigh. The patient stated that he was seeing a small boil in the left upper thigh that extended over the past 4 days prior to admission. The patient was trying home remedies that failed and he presented to emergency room where he was found to have sepsis secondary to cellulitis of the left lower extremity and admitted for further management. The patient denied having any trauma or any insect bite. REVIEW OF SYSTEMS: Other review of systems is negative. ALLERGIES: POSITIVE FOR PENICILLIN AND SHELLFISH. SOCIAL HISTORY: Positive for smoking. No EtOH or substance abuse. FAMILY HISTORY: Noncontributory. MEDICATIONS: Reviewed as per MAR and ordered. PAST MEDICAL HISTORY: Aortic valve replacement, hypertension, and type 2 diabetes mellitus. PHYSICAL EXAMINATION: GENERAL: The patient is in bed, not in any cardiopulmonary distress. VITAL SIGNS: Blood pressure was 128/80, temperature 98.9, respiratory rate 20, and pulse 77. HEENT: Pupils equal, reactive to light. Normal appearing mucosa of the conjunctivae, oropharynx and nasal membrane mucosa. NECK: Supple. No JVD. No carotid bruit. No lymph node. No thyromegaly. CHEST AND LUNGS: Bilateral symmetrical expansion. Good air exchange. No rales, no rhonchi. CARDIOVASCULAR: PMI not localized. S1, S2. No additional sounds. ABDOMEN: Normoactive bowel sounds. No tenderness. No organomegaly. No masses. EXTREMITIES: No cyanosis, no clubbing, no edema. There is redness and diffuse swelling of the left thigh laterally. ACCOUNTS PAYABLE LEAD: Alert, awake, oriented x3. No neurological deficit could be appreciated. ASSESSMENT: 1. Cellulitis of the . 2. Cellulitis of the left extremity. 3. Type 2 diabetes mellitus. 4. Hypertension. 5. Smoker. PLAN: We will continue vancomycin and Cipro as well as continue the Accu-Cheks with insulin coverage and resume the patient's home medications. Paris Wolff MD
[2018-07-25] MEDS: Insulin Lispro (humaLOG) 100 Units/ml Inj SC SCH ×4 (07:03→22:04)
[2018-07-25] MEDS: Metoprolol Succinate 25 mg XL Tab PO SCH (09:10)
[2018-07-25] MEDS: Ciprofloxacin 400mg/200ml D5W 400 MG/200 ML BAG IVPB SCH ×2 (09:12→20:24)
[2018-07-25] MEDS: Enoxaparin 40 mg Syringe SC SCH (09:12)
[2018-07-25 12:08] LABS: HEMOGLOBIN 11.5 g/dL (12.0-18.0); MEAN CELL VOLUME 82.7 fl (80.0-94.0); MEAN CORPUSCULAR HGB CONC 31.4 g/dL (33.0-37.0); RBC 4.42 Mil/uL (4.40-5.90); RED CELL DISTRIBUTION WIDTH 14.6 % (11.5-14.5); WHITE BLOOD COUNT 10.3 K/uL (4.8-10.8)
[2018-07-25 12:34] LABS: BLOOD UREA NITROGEN 8 mg/dl (9-20); CALCIUM 8.6 mg/dL (8.4-10.2); GFR NON-AFRICAN AMERICAN > 60
[2018-07-25] MEDS: Insulin Detemir 100 Units/ml Inj SC SCH (17:26)
[2018-07-25 22:08] LABS: SQUAMOUS EPITHIAL < 1 /hpf (0-5); URINE BILIRUBIN NEGATIVE (NEGATIVE); URINE CLARITY CLEAR (Clear); URINE COLOR YELLOW (YELLOW); URINE GLUCOSE (UA) >=500 mg/dL (Normal); URINE LEUKOCYTE ESTERASE NEG Leu/uL (Negative); URINE PROTEIN NEGATIVE (NEGATIVE); URINE UROBILINOGEN 0.2-1.0 mg/dL (0.2-1.0)
[2018-07-25 22:11] LABS: URINE BLOOD NEGATIVE (NEGATIVE)
[2018-07-26] MEDS: Insulin Lispro (humaLOG) 100 Units/ml Inj SC SCH ×4 (06:59→23:24)
[2018-07-26 08:26] VITALS: RESP 20
[2018-07-26] MEDS: Ciprofloxacin 400mg/200ml D5W 400 MG/200 ML BAG IVPB SCH ×2 (08:54→21:02)
[2018-07-26] MEDS: Insulin Detemir 100 Units/ml Inj SC SCH ×2 (08:56→17:23)
[2018-07-26] MEDS: Enoxaparin 40 mg Syringe SC SCH (08:57)
[2018-07-26] MEDS: Metoprolol Succinate 25 mg XL Tab PO SCH (08:59)
--- NOTE | 2018-07-26 10:44 | CP.PCM.PCO ---
Assessment/Plan - Assessment and Plan (Free Text) Assessment: Patient seen and examined. VSS denies chest pain shortness of breath nausea or vomiting. Wound to left thigh less tender, less drainage. Labs reviewed with patient, Blood sugars better controlled with levemir BID which was started yesterday night. patient will need diabetic teaching and iv antibiotics for 5-7 days for proper healing. Will refer to tcu for continuation of treatment. Discussed with Dr Wolff who agrees.
--- NOTE | 2018-07-26 13:29 | PN ---
DATE: 07/25/2018 SUBJECTIVE: The patient was seen on 07/25/2018. He was not in any cardiopulmonary distress. Swelling and redness of the left thigh was improving. PHYSICAL EXAMINATION: VITAL SIGNS: Blood pressure 144/78, temperature 99.2, respiratory rate 20 and pulse 83. HEENT: Pupils equal, reactive to light. Normal-appearing mucosa of the conjunctivae, oropharynx and nasal membrane mucosa. NECK: Supple. No JVD. No carotid bruit. No lymph node. No thyromegaly. CHEST AND LUNGS: Bilateral symmetrical expansion. Good air exchange. No rales, no rhonchi. CARDIOVASCULAR: PMI not localized. S1, S2. No additional sounds. ABDOMEN: Normoactive bowel sounds. No tenderness. No organomegaly. No masses. EXTREMITIES: No cyanosis, no clubbing, no edema. Left thigh redness is decreasing. SEED LABORATORY ASSISTANT: Alert, awake, oriented x2 and no neurological deficit could be appreciated. LABORATORY DATA: Blood work showed hemoglobin A1c of 13.5, elevated blood glucose. PLAN: We will add Levemir 10 units twice a day. Continue current IV antibiotics and we will check vancomycin trough and plan to discharge the patient on p.o. antibiotics if he will continue to improve. Paris Wolff MD
--- NOTE | 2018-07-26 13:52 | CP.PCM.CON ---
History of Present Illness - History of Present Illness History of Present Illness: General Surgery Consult note for Dr. Cabezas consulted for Left thigh abscess Patient is a 53 yr old male with PMH of DM, HTN who presented to [facility] ED for pain and swelling of his left thigh x 2 days. He states that the area began as a pimple and had minimal drainage last night. He states that he often gets these abscesses but they usually heal on their own. He states that the swelling and pain have improved since admission. He denies and f/c, n/v, POTTER, CP, SOB, abdominal pain, and extremity weakness. PMH: HTN, DM PSH: CABG All: PCN, shellfish Review of Systems - Review of Systems All systems: reviewed and no additional remarkable complaints except (as per HPI) Past Patient History - Past Medical History & Family History Past Medical History?: Yes - Past Social History Smoking Status: Former Smoker - CARDIAC Hx Hypercholesterolemia: Yes Hx Hypertension: Yes - PULMONARY Hx Asthma: Yes Hx Pneumonia: Yes - NEUROLOGICAL Hx Neurological Disorder: No - HEENT Hx HEENT Problems: No - RENAL Hx Chronic Kidney Disease: No - ENDOCRINE/METABOLIC Hx Diabetes Mellitus Type 2: Yes - HEMATOLOGICAL/ONCOLOGICAL Hx Blood Disorders: No Hx AIDS: No Hx Human Immunodeficiency Virus (HIV): No - INTEGUMENTARY Hx Dermatological Problems: No - MUSCULOSKELETAL/RHEUMATOLOGICAL Hx Arthritis: Yes Hx Falls: No - GASTROINTESTINAL Hx Gall Bladder Disease: Yes (STONES) - GENITOURINARY/GYNECOLOGICAL Hx Genitourinary Disorders: No - PSYCHIATRIC Hx Psychophysiologic Disorder: No Hx Emotional Abuse: No Hx Physical Abuse: No Hx Substance Use: No - SURGICAL HISTORY Hx Surgeries: Yes Hx Open Heart Surgery: Yes (NOVEMBER 2017) Hx Valve Replacement: Yes Other/Comment: cyst removed left underarm - ANESTHESIA Hx Anesthesia: Yes Hx Anesthesia Reactions: No Hx Malignant Hyperthermia: No Meds Home Medications: Home Medication List Medication Instructions Recorded Confirmed Type Ciprofloxacin IV [Cipro] 400 mg IVPB Q12 #10 vial 07/26/18 Rx Enalapril Maleate [Vasotec] 20 mg PO DAILY tab 07/26/18 Rx Enoxaparin [Lovenox] 40 mg SC DAILY syr 07/26/18 Rx Insulin Detemir [Levemir] 10 units SC BID vial 07/26/18 Rx Vancomycin/0.9 % Sod Chloride 1 gm IV Q12 #10 plast..bag 07/26/18 Rx [Vanco 1 Gram/150 ml-0.9% NaCl] Allergies/Adverse Reactions: Allergies Allergy/AdvReac Type Severity Reaction Status Date / Time Penicillins Allergy Intermediate RASH Verified 02/18/18 07:56 shellfish derived Allergy Intermediate SWELLING Verified 02/18/18 07:56 - Medications Medications: Current Medications Amlodipine Besylate (Norvasc) 10 mg PO DAILY [facility] Last Admin: 07/26/18 08:58 Dose: 10 mg Aspirin (Ecotrin) 81 mg PO DAILY [facility] Last Admin: 07/26/18 08:55 Dose: 81 mg Atorvastatin Calcium (Lipitor) 10 mg PO DAILY [facility] Last Admin: 07/26/18 08:57 Dose: 10 mg Cholecalciferol (Vitamin D) 4,000 intlu PO QWK [facility] Dextrose (Dextrose 50% Inj) 0 ml IV STAT PRN; Protocol PRN Reason: Hypoglycemia Protocol Dextrose (Glutose 15) 0 gm PO ONCE PRN; Protocol PRN Reason: Hypoglycemia Protocol Enalapril Maleate (Vasotec) 10 mg PO DAILY [facility] Last Admin: 07/26/18 08:57 Dose: 10 mg Enoxaparin Sodium (Lovenox) 40 mg SC DAILY [facility]; Protocol Last Admin: 07/26/18 08:57 Dose: 40 mg Glipizide (Glucotrol) 10 mg PO BID [facility] Last Admin: 07/26/18 08:56 Dose: 10 mg Glucagon (Glucagen Diagnostic Kit) 0 mg IM STAT PRN; Protocol PRN Reason: Hypoglycemia Protocol Vancomycin HCl 1 gm/ Sodium (Chloride) 250 mls @ 166.667 mls/hr IVPB Q12H [facility]; Protocol Last Admin: 07/26/18 12:30 Dose: 166.667 mls/hr Ciprofloxacin (Cipro 400mg/200ml Dsw) 400 mg in 200 mls @ 200 mls/hr IVPB Q12 [facility]; Protocol Last Admin: 07/26/18 08:54 Dose: 200 mls/hr Insulin Detemir (Levemir) 10 units SC BID [facility] Last Admin: 07/26/18 08:56 Dose: 10 u Insulin Human Lispro (Humalog) 0 units SC ACHS [facility]; Protocol Last Admin: 07/26/18 13:25 Dose: 6 u Metformin HCl (Glucophage) 1,000 mg PO BID [facility] Last Admin: 07/26/18 08:55 Dose: 1,000 mg Metoprolol Succinate (Toprol Xl) 25 mg PO DAILY [facility] Last Admin: 07/26/18 08:59 Dose: 25 mg Physical Exam - Constitutional Appears: Well, Non-toxic, No Acute Distress - Head Exam Head Exam: ATRAUMATIC, NORMOCEPHALIC - Eye Exam Eye Exam: EOMI - ENT Exam ENT Exam: Mucous Membranes Moist - Respiratory Exam Respiratory Exam: NORMAL BREATHING PATTERN - Cardiovascular Exam Cardiovascular Exam: REGULAR RHYTHM - GI/Abdominal Exam GI & Abdominal Exam: Soft. absent: Distended, Guarding, Tenderness - Extremities Exam Additional comments: Left lateral thigh has a 5cm x 7 cm area of induration with a central area of clearing with no underlying fluctuance - Neurological Exam Neurological exam: Alert, Oriented x3 - Psychiatric Exam Psychiatric exam: Normal Affect, Normal Mood - Skin Skin Exam: Warm Additional comments: 5 cm x 7 cm of induration surrounding an area of central clearing with fibrinous material at the center, area is warm and tender, no underlying fluctuance Results - Vital Signs Recent Vital Signs: Last Vital Signs Temp 98.0 F 07/26/18 12:24 Pulse 73 07/26/18 12:24 Resp 20 07/26/18 12:24 BP 142/87 07/26/18 12:24 Pulse Ox 100 07/26/18 12:24 - Labs Result Diagrams: 07/25/18 12:04 07/25/18 12:04 Labs: Laboratory Results - last 24 hr 07/25/18 07/25/18 07/25/18 11:06 16:28 21:44 POC Glucose (mg/dL) 265 H 204 H Hemoglobin A1c 13.5 H D Urine Color Urine Clarity Urine pH Ur Specific [place] Urine Protein Urine Glucose (UA) Urine Ketones Urine Blood Urine Nitrate Urine Bilirubin Urine Urobilinogen Ur Leukocyte Esterase Urine RBC (Auto) Urine Microscopic WBC Ur Squamous Epith Cells Vancomycin Trough 07/25/18 07/26/18 07/26/18 21:59 05:27 08:38 POC Glucose (mg/dL) 186 H Hemoglobin A1c Urine Color Yellow Urine Clarity Clear Urine pH 6.0 Ur Specific [place] 1.015 Urine Protein Negative Urine Glucose (UA) >=500 Urine Ketones Negative Urine Blood Negative Urine Nitrate Negative Urine Bilirubin Negative Urine Urobilinogen 0.2-1.0 Ur Leukocyte Esterase Neg Urine RBC (Auto) < 1 Urine Microscopic WBC < 1 Ur Squamous Epith Cells < 1 Vancomycin Trough 5.8 07/26/18 11:01 POC Glucose (mg/dL) 285 H Hemoglobin A1c Urine Color Urine Clarity Urine pH Ur Specific [place] Urine Protein Urine Glucose (UA) Urine Ketones Urine Blood Urine Nitrate Urine Bilirubin Urine Urobilinogen Ur Leukocyte Esterase Urine RBC (Auto) Urine Microscopic WBC Ur Squamous Epith Cells Vancomycin Trough Assessment & Plan - Assessment and Plan (Free Text) Assessment: 53 yr old male with left thigh abscess Plan: c/w abx warm compresses TID for 20 min no drainable collection at this time will continue to follow will d/w Dr. Raulito Ritter, PGY 1 - Date & Time Date: 07/26/18 Time: 12:20
[2018-07-26 16:00] VITALS: O2SAT 99
--- NOTE | 2018-07-27 03:29 | PN ---
DATE: 07/26/2018 DAILY PROGRESS NOTE SUBJECTIVE: The patient is seen today, 07/26/2018. He is not in any cardiopulmonary distress. The patient still has swelling and redness of the left lower extremity with some pus being expressed. PHYSICAL EXAMINATION: VITAL SIGNS: Blood pressure 173/96, temperature 98, respiratory rate 20, and pulse 78. HEENT: Pupils equal and reactive to light. Normal-appearing mucosa of the conjunctivae, oropharynx, and nasal membrane mucosa. NECK: Supple. No JVD. No carotid bruit. No lymph node. No thyromegaly. CHEST AND LUNGS: Bilateral symmetrical expansion. Good air exchange. No rales. No rhonchi. CARDIOVASCULAR SYSTEM: PMI not localized. S1 and S2. No additional sounds. ABDOMEN: Normoactive bowel sounds. No tenderness. No organomegaly. No masses. EXTREMITIES: Swelling and redness of the left lower extremity and the upper thigh with expression of pus on squeezing of the head of the wound that he has in the midst of that erythema. CENTRAL NERVOUS SYSTEM: Alert, awake, and oriented x3. No neurological deficit could be appreciated. ASSESSMENT: Cellulitis of the left lower extremity, hypertension, type 2 diabetes mellitus. PLAN: Continue current IV antibiotics. Follow recommendations of the surgical consult. Paris Wolff MD
[2018-07-27 05:13] VITALS: TEMP 98.2
[2018-07-27 05:42] LABS: HEMOGLOBIN 11.4 g/dL (12.0-18.0); MEAN CELL VOLUME 79.9 fl (80.0-94.0); MEAN CORPUSCULAR HEMOGLOBIN 26.6 pg (27.0-31.0); MEAN CORPUSCULAR HGB CONC 33.3 g/dL (33.0-37.0); RBC 4.29 Mil/uL (4.40-5.90); RED CELL DISTRIBUTION WIDTH 14.1 % (11.5-14.5); WHITE BLOOD COUNT 10.1 K/uL (4.8-10.8)
[2018-07-27 05:52] LABS: ALB/GLOB RATIO 0.8 (1.0-2.1); ALBUMIN 3.3 g/dL (3.5-5.0); ALT/SGPT 28 U/L (21-72); AST/SGOT 25 U/L (17-59); BLOOD UREA NITROGEN 9 mg/dl (9-20); GFR NON-AFRICAN AMERICAN > 60
[2018-07-27] MEDS: Ciprofloxacin 400mg/200ml D5W 400 MG/200 ML BAG IVPB SCH (09:14)
[2018-07-27] MEDS: Insulin Detemir 100 Units/ml Inj SC SCH (09:16)
[2018-07-27] MEDS: Insulin Lispro (humaLOG) 100 Units/ml Inj SC SCH ×2 (09:16→12:03)
[2018-07-27] MEDS: Enoxaparin 40 mg Syringe SC SCH (09:17)
[2018-07-27 09:18] VITALS: BP 164/87; PULSE 71
[2018-07-27] MEDS: Metoprolol Succinate 25 mg XL Tab PO SCH (09:18)
--- NOTE | 2018-07-27 11:37 | CP.PCM.PN ---
Subjective - Date & Time of Evaluation Date of Evaluation: 07/27/18 Time of Evaluation: 11:35 - Subjective Subjective: Surgery Pt seen and examined. L thigh abscess draining. Dressing changed this AM. Pt feels better. Less pain. Denies fever, nausea, diarrhea. Objective - Vital Signs/Intake and Output Vital Signs (last 24 hours): Temp Pulse Resp BP Pulse Ox 98.2 F 71 20 164/87 H 99 07/27/18 05:13 07/27/18 09:18 07/27/18 05:13 07/27/18 09:18 07/27/18 05:13 - Medications Medications: Current Medications Acetaminophen (Tylenol 325mg Tab) 650 mg PO Q6 PRN PRN Reason: Pain, Mild (1-3) Last Admin: 07/27/18 06:40 Dose: 650 mg Amlodipine Besylate (Norvasc) 10 mg PO DAILY [facility] Last Admin: 07/27/18 09:17 Dose: 10 mg Aspirin (Ecotrin) 81 mg PO DAILY [facility] Last Admin: 07/27/18 09:15 Dose: 81 mg Atorvastatin Calcium (Lipitor) 10 mg PO DAILY [facility] Last Admin: 07/27/18 09:17 Dose: 10 mg Cholecalciferol (Vitamin D) 4,000 intlu PO QWK [facility] Dextrose (Dextrose 50% Inj) 0 ml IV STAT PRN; Protocol PRN Reason: Hypoglycemia Protocol Dextrose (Glutose 15) 0 gm PO ONCE PRN; Protocol PRN Reason: Hypoglycemia Protocol Enalapril Maleate (Vasotec) 10 mg PO DAILY [facility] Last Admin: 07/27/18 09:16 Dose: 10 mg Enoxaparin Sodium (Lovenox) 40 mg SC DAILY [facility]; Protocol Last Admin: 07/27/18 09:17 Dose: 40 mg Glipizide (Glucotrol) 10 mg PO BID [facility] Last Admin: 07/27/18 09:15 Dose: 10 mg Glucagon (Glucagen Diagnostic Kit) 0 mg IM STAT PRN; Protocol PRN Reason: Hypoglycemia Protocol Vancomycin HCl 1 gm/ Sodium (Chloride) 250 mls @ 166.667 mls/hr IVPB Q12H [facility]; Protocol Last Admin: 07/26/18 23:23 Dose: 166.667 mls/hr Ciprofloxacin (Cipro 400mg/200ml Dsw) 400 mg in 200 mls @ 200 mls/hr IVPB Q12 [facility]; Protocol Last Admin: 07/27/18 09:14 Dose: 200 mls/hr Insulin Detemir (Levemir) 10 units SC BID [facility] Last Admin: 07/27/18 09:16 Dose: 10 u Insulin Human Lispro (Humalog) 0 units SC ACHS [facility]; Protocol Last Admin: 07/27/18 09:16 Dose: 2 u Metformin HCl (Glucophage) 1,000 mg PO BID [facility] Last Admin: 07/27/18 09:15 Dose: 1,000 mg Metoprolol Succinate (Toprol Xl) 25 mg PO DAILY [facility] Last Admin: 07/27/18 09:18 Dose: 25 mg - Labs Labs: 07/27/18 04:50 07/27/18 04:50 - Constitutional Appears: No Acute Distress - Head Exam Head Exam: ATRAUMATIC, NORMAL INSPECTION, NORMOCEPHALIC - Eye Exam Eye Exam: EOMI, Normal appearance, PERRL Pupil Exam: NORMAL ACCOMODATION, PERRL - ENT Exam ENT Exam: Mucous Membranes Moist - Neck Exam Neck Exam: Full ROM, Normal Inspection. absent: Lymphadenopathy - Respiratory Exam Respiratory Exam: NORMAL BREATHING PATTERN - Cardiovascular Exam Cardiovascular Exam: REGULAR RHYTHM - GI/Abdominal Exam GI & Abdominal Exam: Soft. absent: Tenderness - Exam Exam: NORMAL INSPECTION - Extremities Exam Extremities Exam: Full ROM, Normal Capillary Refill, Tenderness. absent: Normal Inspection Additional comments: L thigh has 0.5cm punctate draining purulent fluids spontaneously. - Neurological Exam Neurological Exam: Alert, Awake, CN II-XII Intact, Normal Gait, Oriented x3 - Psychiatric Exam Psychiatric exam: Normal Affect, Normal Mood - Skin Skin Exam: Erythema, Warm. absent: Dry, Intact Assessment and Plan - Assessment and Plan (Free Text) Assessment: 53 yr old male with left thigh abscess now draining spontaneously Plan: c/w abx warm compresses TID for 20 min to keep the cavity open so continues to drain. No surgical intervention at this time. will d/w Dr. Cabezas
--- NOTE | 2018-07-27 23:26 | PQF ---
PROVIDER RESPONSE TEXT: Agree with BMI 40.3 REVIEWER QUERY TEXT: Clarification of Clinical Diagnostic Findings Please clarify if you are in agreement with the BMI: 40.3 as listed in the EMR? OR: Disagree OR: Other explanation of clinical finding EMR: lists the following data: 6ft 297lb BMI:40.3 The patient's Clinical Indicators include: - Query created by: Brigida Alva on 07/26/2018 9:36 AM Electronically signed by: Pairs Wolff MD 07/27/2018 11:22 PM
--- NOTE | 2018-07-27 23:26 | PQF ---
PROVIDER RESPONSE TEXT: Yes , morbid obesity REVIEWER QUERY TEXT: Clarification of Clinical Diagnostic Findings Please clarify if there is an associated dx. to go along with the BMI: 40.3 as listed in the EMR? i. e. Morbid Obesity etc. OR: Disagree OR: Other explanation of clinical finding EMR: lists the following data: 6ft 297lb BMI:40.3 The patient's Clinical Indicators include: - Query created by: Brigida Alva on 07/26/2018 9:38 AM Electronically signed by: Paris Wolff MD 07/27/2018 11:22 PM
--- NOTE | 2018-07-27 23:26 | PQF ---
PROVIDER RESPONSE TEXT: Diabetes with hyperglycemia REVIEWER QUERY TEXT: Diabetic Associated Manifestations Please specify any manifestations associated / due to diabetes Such as: --Diabetes with Hyperglycemia -- Diabetes with renal manifestation -- Diabetes with neurologic manifestation -- Diabetes with ophthalmic manifestation -- Diabetes with peripheral circulatory manifestation -- Other, please specify Random glucose: 513 POC Glucose: 464->427->407->436->291->240->329 H and P includes: Assessment : 1. Cellulitis of the . 2. Cellulitis of the left extremity. 3. Type 2 diabetes mellitus. 4. Hypertension. 5. Smoker. --insulin, metformin The patient's Clinical Indicators include: - Query created by: Brigida Alva on 07/26/2018 9:30 AM Electronically signed by: Paris Wolff MD 07/27/2018 11:22 PM
== END 2018-07-27 14:15 | DRG 872 ==
LOC: H.ER 10:26 → H.ERHOLD 13:42 → H.TEL 17:40
PROVIDERS: ADMIT Internal Medicine; ATTEND Internal Medicine
DX: A41.9 Sepsis, unspecified organism (principal); L03.116 Cellulitis of left lower limb; L02.416 Cutaneous abscess of left lower limb; Z68.41 Body mass index [BMI] 40.0-44.9, adult; Z95.2 Presence of prosthetic heart valve; I10 Essential (primary) hypertension; Z88.0 Allergy status to penicillin; Z91.013 Allergy to seafood; Z23 Encounter for immunization; M19.90 Unspecified osteoarthritis, unspecified site; J45.909 Unspecified asthma, uncomplicated; E78.00 Pure hypercholesterolemia, unspecified; F17.200 Nicotine dependence, unspecified, uncomplicated; Z79.4 Long term (current) use of insulin; Z79.82 Long term (current) use of aspirin; M25.511 Pain in right shoulder; E11.65 Type 2 diabetes mellitus with hyperglycemia; E66.01 Morbid (severe) obesity due to excess calories

== ENCOUNTER 2018-07-27 12:49 | Inpatient (IN) | payer BC ==
[2018-07-27 14:26] VITALS: BMI 40.2
[2018-07-27] MEDS ORDERED: Dextrose 50% SYRINGE Inj (50 ml) IV PRN (14:37)
[2018-07-27] MEDS ORDERED: Glucagon Recombinant 1 mg Inj IM PRN (14:37)
[2018-07-27] MEDS ORDERED: Cholecalciferol 1,000 INTLU TAB PO SCH (14:45)
[2018-07-27] MEDS: Insulin Detemir 100 Units/ml Inj SC SCH ×3 (17:03→21:38)
[2018-07-27] MEDS: Insulin Regular 100 units/ml SC SCH ×2 (17:05→21:38)
[2018-07-27] MEDS: Ciprofloxacin 400mg/200ml D5W 400 MG/200 ML BAG IVPB SCH (20:41)
[2018-07-27] MEDS ORDERED: Patient's Own Med (Vancomycin/0.9 % Sod Chloride [Vanco 1 Gram/150 Ml-0.9% Nacl] 1 GM) IV SCH (21:00)
[2018-07-27] MEDS ORDERED: Patient's Own Med (Ciprofloxacin Iv 400 MG) IVPB SCH (21:00)
[2018-07-28] MEDS: Insulin Regular 100 units/ml SC SCH ×4 (06:45→21:46)
[2018-07-28] MEDS: Ciprofloxacin 400mg/200ml D5W 400 MG/200 ML BAG IVPB SCH ×2 (08:10→20:37)
[2018-07-28] MEDS: Insulin Detemir 100 Units/ml Inj SC SCH ×2 (08:12→20:53)
[2018-07-28] MEDS: Enoxaparin 40 mg Syringe SC SCH (08:13)
[2018-07-28] MEDS: Metoprolol Succinate 25 mg XL Tab PO SCH (08:13)
[2018-07-29] MEDS: Insulin Regular 100 units/ml SC SCH ×4 (07:08→21:03)
[2018-07-29] MEDS: Ciprofloxacin 400mg/200ml D5W 400 MG/200 ML BAG IVPB SCH ×2 (08:08→20:21)
[2018-07-29] MEDS: Insulin Detemir 100 Units/ml Inj SC SCH ×2 (08:09→20:26)
[2018-07-29] MEDS: Enoxaparin 40 mg Syringe SC SCH (08:10)
[2018-07-29] MEDS: Metoprolol Succinate 25 mg XL Tab PO SCH (08:11)
--- NOTE | 2018-07-30 04:27 | HP ---
LATE ENTRY FOR HISTORY AND PHYSICAL HISTORY OF PRESENT ILLNESS: This is a 53-year-old male with history of multiple medical problems including uncontrolled hypertension and type 2 diabetes mellitus who was admitted to the transitional care unit for completion of IV antibiotic therapy. The patient was admitted last week with small abscess and massive cellulitis of the left lower extremity. The patient was treated with IV antibiotics and DVT prophylaxis. During hospital stay, the patient's medications were also resumed. The patient denied to have any chest pain or shortness of breath. There is swelling and pain in the left lower extremity. It has been decreasing. Other review of system is negative. ALLERGIES: POSITIVE FOR PENICILLIN AND SHELLFISH. SOCIAL HISTORY: No history of smoking, EtOH, or substance abuse. FAMILY HISTORY: Noncontributory. PAST MEDICAL HISTORY: Hypertension, type 2 diabetes mellitus, status post aortic valve replacement by open heart surgery, hypercholesterolemia. PHYSICAL EXAMINATION: GENERAL: The patient is in bed, not in any cardiopulmonary distress. VITAL SIGNS: Blood pressure was 144/73, temperature 98.2, respiratory rate 20, and pulse 79. HEENT: Pupils equal and reactive to light. Normal-appearing mucosa of the conjunctivae, oropharynx, and nasal membrane mucosa. NECK: Supple. No JVD. No carotid bruit. No lymph node. No thyromegaly. CHEST AND LUNGS: Bilateral symmetrical expansion. Good air exchange. No rales. No rhonchi. CARDIOVASCULAR SYSTEM: PMI not localized. S1 and S2. No additional sounds. ABDOMEN: Normoactive bowel sounds. No tenderness. No organomegaly. No masses. EXTREMITIES: No cyanosis, no clubbing, no edema. CENTRAL NERVOUS SYSTEM: Alert, awake, oriented x2. No neurological deficit could be appreciated. ASSESSMENT: 1. Cellulitis of the left lower extremity with abscess formation which has been resolving. 2. Type 2 diabetes mellitus. 3. Hypertension. 4. Hypercholesterolemia. PLAN: Continue current medications. Physical therapy. Warm compression. Check blood work. [facility] MD [place]
[2018-07-30] MEDS: Insulin Regular 100 units/ml SC SCH ×4 (06:53→22:20)
[2018-07-30] MEDS: Enoxaparin 40 mg Syringe SC SCH (08:20)
[2018-07-30] MEDS: Metoprolol Succinate 25 mg XL Tab PO SCH (08:21)
[2018-07-30] MEDS: Ciprofloxacin 400mg/200ml D5W 400 MG/200 ML BAG IVPB SCH ×2 (08:23→20:57)
[2018-07-30] MEDS: Insulin Detemir 100 Units/ml Inj SC SCH ×2 (08:25→22:21)
[2018-07-30 12:51] LABS: BASO # 0.2 K/uL (0.0-0.2); BASO % 1.3 % (0.0-2.0); EOS # 0.2 K/uL (0.0-0.7); EOS % 1.5 % (0.0-4.0); HEMOGLOBIN 11.7 g/dL (12.0-18.0); LYMPH # 2.5 K/uL (1.0-4.3); MEAN CELL VOLUME 81.8 fl (80.0-94.0); MEAN CORPUSCULAR HGB CONC 31.7 g/dL (33.0-37.0); MEAN PLATELET VOLUME 7.9 fl (7.2-11.7); MONO # 0.7 K/uL (0.0-0.8); MONO % 5.7 % (0.0-10.0); NEUT # 8.5 K/uL (1.8-7.0); NEUT % 70.5 % (50.0-75.0); NRBC % 0.1 % (0.0-0.0); RBC 4.52 Mil/uL (4.40-5.90); RED CELL DISTRIBUTION WIDTH 14.3 % (11.5-14.5)
[2018-07-30 13:23] LABS: ALB/GLOB RATIO 0.9 (1.0-2.1); ALBUMIN 3.8 g/dL (3.5-5.0); ALT/SGPT 32 U/L (21-72); AST/SGOT 39 U/L (17-59); BLOOD UREA NITROGEN 10 mg/dl (9-20); CALCIUM 9.3 mg/dL (8.4-10.2); GFR NON-AFRICAN AMERICAN > 60
--- NOTE | 2018-07-30 17:17 | PN ---
DATE: 07/30/2018 SUBJECTIVE: The patient is seen today, 07/30/2018. He is not in any cardiopulmonary distress and the wound on the left thigh is healing with less swelling. PHYSICAL EXAMINATION: VITAL SIGNS: Blood pressure 145/85, temperature 97.7, respiratory rate 20, and pulse 78. HEENT: Pupils equal, reactive to light. Normal appearing mucosa of the conjunctivae, oropharynx and nasal membrane mucosa. NECK: Supple. No JVD. No carotid bruit. No lymph node. No thyromegaly. CHEST AND LUNGS: Bilateral symmetrical expansion. Good air exchange. No rales. No rhonchi. CARDIOVASCULAR SYSTEM: PMI not localized. S1 and S2. No additional sounds. ABDOMEN: Normoactive bowel sounds. No tenderness. No organomegaly. No masses. EXTREMITIES: No cyanosis, no clubbing, no edema, and left thigh has a small wound that is granulating as well as there is decreased swelling and tenderness and redness around the wound. CENTRAL NERVOUS SYSTEM: Alert, awake, oriented x3. No neurological deficit could be appreciated. ASSESSMENT: 1. Cellulitis with infected wound on the left thigh. 2. Hypertension. 3. Type 2 diabetes mellitus with hyperglycemia. PLAN: Monitor blood work and kidney function. Continue current medications and insulin coverage as needed. Paris Wolff MD
[2018-07-31] MEDS: Insulin Regular 100 units/ml SC SCH ×4 (07:00→21:34)
[2018-07-31] MEDS: Enoxaparin 40 mg Syringe SC SCH (08:15)
[2018-07-31] MEDS: Insulin Detemir 100 Units/ml Inj SC SCH ×2 (08:16→21:38)
[2018-07-31] MEDS: Metoprolol Succinate 25 mg XL Tab PO SCH (08:17)
[2018-07-31] MEDS: Ciprofloxacin 400mg/200ml D5W 400 MG/200 ML BAG IVPB SCH (08:22)
[2018-08-01] MEDS: Insulin Regular 100 units/ml SC SCH ×4 (06:45→21:53)
[2018-08-01] MEDS: Metoprolol Succinate 25 mg XL Tab PO SCH (08:43)
[2018-08-01] MEDS: Insulin Detemir 100 Units/ml Inj SC SCH ×2 (08:44→21:56)
--- NOTE | 2018-08-01 20:53 | CP.PCM.CON ---
History of Present Illness - History of Present Illness History of Present Illness: SURGERY NOTE FOR DR. CONN Patient is a 53 year old Male with past medical history of Diabetes Mellitus, Hypertension, and left thigh abscess. Surgery re-consulted for left thigh abscess. Patient is currently in TCU with plans of being discharged tomorrow. Abscess has significantly improved. Patient denies any p ain, further purulent drainage from the area, or fever. Denies any headaches, chest pain, shortness of breath, abdominal pain. He has been tolerating diet and working well with physical therapy. PMH: HTN, DM PSH: CABG All: PCN, shellfish Past Patient History - Past Medical History & Family History Past Medical History?: Yes - Past Social History Smoking Status: Former Smoker - CARDIAC Hx Cardiac Disorders: Yes Hx Hypercholesterolemia: Yes Hx Hypertension: Yes - PULMONARY Hx Asthma: Yes Hx Pneumonia: Yes - NEUROLOGICAL Hx Neurological Disorder: No - HEENT Hx HEENT Problems: No - RENAL Hx Chronic Kidney Disease: No - ENDOCRINE/METABOLIC Hx Diabetes Mellitus Type 2: Yes - HEMATOLOGICAL/ONCOLOGICAL Hx Blood Disorders: No Hx AIDS: No Hx Human Immunodeficiency Virus (HIV): No - INTEGUMENTARY Hx Dermatological Problems: No - MUSCULOSKELETAL/RHEUMATOLOGICAL Hx Arthritis: Yes - GASTROINTESTINAL Hx Gall Bladder Disease: Yes (STONES) - GENITOURINARY/GYNECOLOGICAL Hx Genitourinary Disorders: No - PSYCHIATRIC Hx Psychophysiologic Disorder: No Hx Emotional Abuse: No Hx Physical Abuse: No Hx Substance Use: No - SURGICAL HISTORY Hx Surgeries: Yes Hx Open Heart Surgery: Yes (NOVEMBER 2017) Hx Valve Replacement: Yes Other/Comment: cyst removed left underarm - ANESTHESIA Hx Anesthesia: Yes Hx Anesthesia Reactions: No Hx Malignant Hyperthermia: No Meds Allergies/Adverse Reactions: Allergies Allergy/AdvReac Type Severity Reaction Status Date / Time Penicillins Allergy Intermediate RASH Verified 07/27/18 14:25 shellfish derived Allergy Intermediate SWELLING Verified 07/27/18 14:25 - Medications Medications: Current Medications Acetaminophen (Tylenol 325mg Tab) 650 mg PO Q6 PRN PRN Reason: Pain, Mild (1-3) Last Admin: 08/01/18 05:32 Dose: 650 mg Amlodipine Besylate (Norvasc) 10 mg PO DAILY [facility] Last Admin: 08/01/18 08:42 Dose: 10 mg Aspirin (Ecotrin) 81 mg PO DAILY [facility] Last Admin: 08/01/18 08:43 Dose: 81 mg Atorvastatin Calcium (Lipitor) 10 mg PO DAILY@2100 [facility] Last Admin: 07/31/18 21:38 Dose: 10 mg Cholecalciferol (Vitamin D) 4,000 intlu PO QWK [facility] Ciprofloxacin (Cipro) 500 mg PO Q12 [facility] Last Admin: 08/01/18 08:43 Dose: 500 mg Dextrose (Dextrose 50% Inj) 0 ml IV STAT PRN; Protocol PRN Reason: Hypoglycemia Protocol Dextrose (Glutose 15) 0 gm PO ONCE PRN; Protocol PRN Reason: Hypoglycemia Protocol Enalapril Maleate (Vasotec) 20 mg PO DAILY [facility] Last Admin: 08/01/18 08:43 Dose: 20 mg Glipizide (Glucotrol) 10 mg PO BID@0800,1700 [facility] Last Admin: 08/01/18 16:39 Dose: 10 mg Glucagon (Glucagen Diagnostic Kit) 0 mg IM STAT PRN; Protocol PRN Reason: Hypoglycemia Protocol Vancomycin HCl 1 gm/ Sodium (Chloride) 250 mls @ 166.667 mls/hr IVPB Q12@0500,1700 [facility]; Protocol Last Admin: 08/01/18 16:38 Dose: 166.667 mls/hr Insulin Detemir (Levemir) 10 units SC BID@0900,2100 [facility] Last Admin: 08/01/18 08:44 Dose: 10 units Insulin Human Regular (Humulin R) 0 units SC ACHS [facility]; Protocol Last Admin: 08/01/18 16:40 Dose: 2 units Metformin HCl (Glucophage) 1,000 mg PO BID [facility] Last Admin: 08/01/18 16:39 Dose: 1,000 mg Metoprolol Succinate (Toprol Xl) 25 mg PO DAILY [facility] Last Admin: 08/01/18 08:43 Dose: 25 mg Physical Exam - Constitutional Appears: Non-toxic, No Acute Distress - Eye Exam Eye Exam: EOMI - ENT Exam ENT Exam: Mucous Membranes Moist - Respiratory Exam Respiratory Exam: NORMAL BREATHING PATTERN - Cardiovascular Exam Cardiovascular Exam: REGULAR RHYTHM, +S1, +S2 - GI/Abdominal Exam GI & Abdominal Exam: Soft. absent: Distended, Firm, Guarding, Rebound, Rigid, Tenderness - Extremities Exam Extremities exam: Negative for: pedal edema, tenderness Additional comments: Left thigh: site of abscess drainage still open, unable to express purulent fluid, no erythema, no fluctuance or induration - Neurological Exam Neurological exam: Alert, Oriented x3 - Skin Skin Exam: Dry, Intact, Normal Color, Warm Results - Vital Signs Recent Vital Signs: Last Vital Signs Temp 97.2 F L 08/01/18 15:41 Pulse 76 08/01/18 15:41 Resp 18 08/01/18 15:41 BP 157/90 H 08/01/18 15:41 Pulse Ox 99 08/01/18 15:41 - Labs Result Diagrams: 07/30/18 12:20 07/30/18 12:20 Labs: Laboratory Results - last 24 hr 07/30/18 07/30/18 07/30/18 05:20 11:03 16:08 POC Glucose (mg/dL) 166 H 238 H 152 H 07/30/18 07/31/18 07/31/18 21:28 05:43 10:53 POC Glucose (mg/dL) 226 H 182 H 223 H 07/31/18 07/31/18 08/01/18 16:10 21:04 05:38 POC Glucose (mg/dL) 214 H 137 H 146 H 08/01/18 08/01/18 10:34 15:03 POC Glucose (mg/dL) 291 H 179 H Assessment & Plan - Assessment and Plan (Free Text) Assessment: Assessment: 53 M with resolved left thigh abscess Plan: -Stable, afebrile -Cleared for discharge home from surgical perspective
[2018-08-01 21:25] VITALS: RESP 20
--- NOTE | 2018-08-01 23:58 | PN ---
DATE: 08/01/2018 SUBJECTIVE: The patient is seen today 08/01/2018. He still has some oozing from the left thigh wound. PHYSICAL EXAMINATION: VITAL SIGNS: Blood pressure 157/90, temperature 97.2, respiratory rate 18 and pulse 76. HEENT: Pupils equal, reactive to light. Normal-appearing mucosa of the conjunctivae, oropharynx and nasal membrane mucosa. NECK: Supple. No JVD. No carotid bruit. No lymph node. No thyromegaly. CHEST AND LUNGS: Bilateral symmetrical expansion. Good air exchange. No rales, no rhonchi. CARDIOVASCULAR SYSTEM: PMI not localized. S1, S2, no additional sounds. ABDOMEN: Normoactive bowel sounds. No tenderness, no organomegaly, no masses. EXTREMITIES: No cyanosis, no clubbing, no edema. CENTRAL NERVOUS SYSTEM: Alert, awake, oriented x2. No neurological deficit could be appreciated. ASSESSMENT: 1. Cellulitis of the left thigh with open wound and small drainage. 2. Hypertension. 3. Type 2 diabetes mellitus with hyperglycemia. 4. Status post aortic valve replacement. PLAN: Continue current medications and antibiotics. Reconsult Surgery regarding the wound drainage. Paris Wolff MD
[2018-08-02] MEDS: Insulin Regular 100 units/ml SC SCH ×3 (07:07→16:45)
[2018-08-02] MEDS: Metoprolol Succinate 25 mg XL Tab PO SCH (08:36)
[2018-08-02] MEDS: Insulin Detemir 100 Units/ml Inj SC SCH (08:37)
[2018-08-02 15:59] VITALS: BP 171/89; PULSE 83; TEMP 99.1; O2SAT 98
--- NOTE | 2018-08-03 05:38 | DS ---
The patient is seen today for discharge, 08/02/2018. REASON FOR ADMISSION: This is a 53-year-old male with history of multiple medical problems, was admitted to transitional care unit at [facility] for completion of the IV antibiotic therapy. COURSE OF HOSPITALIZATION: The patient was admitted to transitional care unit, and he was continued on both vancomycin and Zosyn. The patient was diagnosed with cellulitis with open wound with discharging pus of the left upper thigh. The patient's symptoms gradually improved, and the patient completed 2 weeks of IV antibiotics, and he was discharged home in a stable condition to continue Bactrim double strength one tablet twice day for another 1 week and to continue current medications including antihyperglycemic and antihypertensive medications. FINAL DIAGNOSES: Cellulitis, infected wound of the left upper thigh, type 2 diabetes mellitus, hypertension, status post aortic valve replacement by open heart surgery. Paris Wolff MD
== END 2018-08-02 17:35 | disposition home or self-care (01) | DRG 603 ==
LOC: H.TCU 14:26
PROVIDERS: ADMIT Internal Medicine; ATTEND Internal Medicine
DX: L03.116 Cellulitis of left lower limb (principal); E11.65 Type 2 diabetes mellitus with hyperglycemia; E78.00 Pure hypercholesterolemia, unspecified; Z95.2 Presence of prosthetic heart valve; Z88.0 Allergy status to penicillin; Z91.013 Allergy to seafood; Z87.891 Personal history of nicotine dependence; I10 Essential (primary) hypertension; J45.909 Unspecified asthma, uncomplicated; S71.102A Unspecified open wound, left thigh, initial encounter

== ENCOUNTER 2019-02-14 21:00 | Emergency (ER) | payer BC ==
[2019-02-14 21:00] VITALS: BMI 40.2
[2019-02-14 21:40] VITALS: RESP 16; TEMP 98.5; O2SAT 100
--- NOTE | 2019-02-14 22:08 | ED PDOC ---
Upper Extremity Pain/Injury Time Seen by Provider: 02/14/19 21:44 Chief Complaint (Nursing): Finger,Hand,&Wrist Chief Complaint (Provider): Right hand Pain History Per: Patient History/Exam Limitations: no limitations Onset/Duration Of Symptoms: Days Current Symptoms Are (Timing): Still Present Severity: None Additional History Per: Patient Additional Complaint(s): 54 year old small with history of HTN presents to the ED with 10 day wound to dorsal aspect of the right hand. Patient states he was playing with his nephew and banged his hand on car door and sustained a "cut" to the hand. Patient reports wound has not closed and his mother became concerned and urged him to come to the hospital because he has a history of diabetes. Patient reports wound has not been draining, denies pain, swellling to the hand. He states the swelling is around the wound. Denies fever, chills, bodyaches. Past Medical History Reviewed: Historical Data, Nursing Documentation, Vital Signs Vital Signs: Last Vital Signs Temp 98.5 F 02/14/19 21:39 Pulse 89 02/14/19 21:39 Resp 16 02/14/19 21:39 BP 129/61 02/14/19 21:39 Pulse Ox 100 02/14/19 21:39 Primary Care Provider: Paris Wolff - Medical History PMH: Arthritis, Asthma, Colonic Polyps, Diabetes, Gall Bladder Disease (STONES), HTN, Hypercholesterolemia, Pneumonia Denies: HIV, Chronic Kidney Disease - Surgical History Surgical History: No Surg Hx - Family History Family History: States: Unknown Family Hx - Living Arrangements Living Arrangements: With Family - Social History Alcohol: None Drugs: Denies - Immunization History Hx Tetanus Toxoid Vaccination: No Hx Influenza Vaccination: Yes Hx Pneumococcal Vaccination: Yes - Home Medications Home Medications: Ambulatory Orders Medication Instructions Recorded GlipiZIDE [Glucotrol] 10 mg PO BID 12/12/14 Metformin HCl 1,000 mg PO BID 12/12/14 Cholecalciferol [Vitamin D 1000 IU] 4,000 iu PO QWK 10/10/17 Albuterol Sulfate [Proair Hfa] 8.5 gm IH Q4 PRN 02/18/18 Amlodipine Besylate/Benazepril 1 cap PO DAILY 02/18/18 [Amlodipine-Benazepril 10-20 mg] Aspirin [Ecotrin] 81 mg PO DAILY 02/18/18 Atorvastatin [Lipitor] 10 mg PO DAILY 02/18/18 Metoprolol Succinate XL [Toprol XL] 25 mg PO DAILY 02/18/18 Ciprofloxacin IV [Cipro] 400 mg IVPB Q12 #10 vial 07/26/18 Enalapril Maleate [Vasotec] 20 mg PO DAILY tab 07/26/18 Enoxaparin [Lovenox] 40 mg SC DAILY syr 07/26/18 Insulin Detemir [Levemir] 10 units SC BID vial 07/26/18 Vancomycin/0.9 % Sod Chloride 1 gm IV Q12 #10 plast..bag 07/26/18 [Vanco 1 Gram/150 ml-0.9% NaCl] Acetaminophen [Tylenol 325mg tab] 650 mg PO Q6 PRN tab 07/27/18 Semaglutide [Ozempic] 0.5 mg SQ 08/02/18 Sulfamethoxazole/Trimethoprim 1 tab PO Q12 08/02/18 [Bactrim DS Tab] Bacitracin OINT 1 applic TP BID #1 tube 02/14/19 - Allergies Allergies/Adverse Reactions: Allergies Allergy/AdvReac Type Severity Reaction Status Date / Time Penicillins Allergy Intermediate RASH Verified 02/14/19 21:37 shellfish derived Allergy Intermediate SWELLING Verified 02/14/19 21:37 Review of Systems ROS Statement: Except As Marked, All Systems Reviewed And Found Negative Constitutional: Negative for: Fever, Chills, Sweats, Weakness, Malaise Respiratory: Negative for: Shortness of Breath Gastrointestinal: Negative for: Nausea, Vomiting, Abdominal Pain Skin: Positive for: Other (right hand wound ) Physical Exam - Reviewed Nursing Documentation Reviewed: Yes Vital Signs Reviewed: Yes - Physical Exam Appears: Positive for: Well, Non-toxic, No Acute Distress Head Exam: Positive for: ATRAUMATIC, NORMAL INSPECTION, NORMOCEPHALIC Skin: Positive for: Normal Color, Warm, DRY Eye Exam: Positive for: Normal appearance, PERRL ENT: Positive for: Normal ENT Inspection Neck: Positive for: Normal, Painless ROM Cardiovascular/Chest: Positive for: Regular Rate, Rhythm Respiratory: Positive for: CNT, Normal Breath Sounds Pulses-Radial (L): 2+ Pulses-Radial (R): 2+ Gastrointestinal/Abdominal: Positive for: Normal Exam Back: Positive for: Normal Inspection Extremity: Positive for: Normal ROM Neurological/Psych: Positive for: Awake, Alert, Normal Tone, Oriented Comments: Right hand wound, approx quater size with visible wound bed size of a dime. [place], dry. edges are clean, dry, non-erythematous, non tender to touch. Negative for hand swelling, color and temperature is within normal limits. Area is raised but non -tender. wound is healing appropriately. - ECG O2 Sat by Pulse Oximetry: 100 Medical Decision Making Medical Decision Making: --bacitricin Patient instructed to monitor wound. Given signs of infection to look out for including, fever, chills, drainage from site, swelling if the hand, tenderness to wound to return to ED. Patient states understanding and agrees with plan. Disposition - Clinical Impression Clinical Impression: Hand injury - Patient ED Disposition Is Patient to be Admitted: No Counseled Patient/Family Regarding: Diagnosis - Disposition Disposition: Routine/Home Disposition Time: 22:00 Condition: GOOD Prescriptions: Bacitracin OINT 1 applic TP BID #1 tube Instructions: Wound Care Forms: [facility] ([place]) - POA Present On Arrival: None
[2019-02-14 22:29] VITALS: BP 127/60; PULSE 85
== END 2019-02-14 22:28 | disposition home or self-care (01) ==
LOC: H.ER 21:00
DX: S69.91XA Unspecified injury of right wrist, hand and finger(s), initial encounter (principal); W22.8XXA Striking against or struck by other objects, initial encounter; Y92.89 Other specified places as the place of occurrence of the external cause; E11.9 Type 2 diabetes mellitus without complications; Z79.4 Long term (current) use of insulin